=== PATIENT | male | born 1955 | race Asian ===

== ENCOUNTER 2021-10-02 05:36 | Inpatient (IN) | payer MEDICARE, OTHER ==
[~2021-10-02] VITALS: Ht 172.7 cm; Wt 89.5 kg
[2021-10-02 05:54] LABS: BASOPHILS % (AUTO) 0.9 % (0.0-2.0); EOSINOPHILS % (AUTO) 1.9 % (1.0-6.0); HEMATOCRIT 37.1 % (41-53); HEMOGLOBIN 11.6 g/dL (13.5-17.5); LYMPHOCYTES # (AUTO) 1.2 K/uL (1.0-4.8); LYMPHOCYTES % (AUTO) 14.1 % (22.0-44.0); MEAN CORPUSCULAR HEMOGLOBIN 20.2 pg (26.0-34.0); MEAN CORPUSCULAR HGB CONC 31.4 G/dL (31.0-37.0); MEAN CORPUSCULAR VOLUME 65 fL (80-100); MONOCYTES # (AUTO) 0.5 K/uL (0.1-1.0); MONOCYTES % (AUTO) 5.3 % (2.0-9.0); NEUTROPHILS # (AUTO) 6.6 K/uL (1.8-7.7); NEUTROPHILS % (AUTO) 77.8 % (40.0-70.0); PLATELET COUNT (AUTO) 309 K/uL (150-450); RED BLOOD CELL COUNT(AUTO) 5.75 MIL/uL (4.50-5.90); RED CELL DISTRIBUTION WIDTH 15.2 % (11.5-14.5)
[2021-10-02 06:04] LABS: COVID AG,FIA SOURCE NASOPHARYNGEAL
[2021-10-02 06:20] LABS: GLUCOSE,POINT OF CARE 214 MG/DL (70-110)
[2021-10-02 06:20] LABS: ALBUMIN 2.3 g/dL (3.4-5.0); BILIRUBIN,TOTAL 0.3 mg/dL (0.1-1.0); POTASSIUM 3.9 mmol/L (3.5-5.1)
[2021-10-02 06:21] LABS: CREATININE 7.6 mg/dL (0.60-1.30)
[2021-10-02] MEDS ORDERED: CALCIUM GLUCONATE 0.465 MEQ/ML 10 ML VIAL IVP ONE (07:00)
[2021-10-02] MEDS ORDERED: LORazepam 2 MG/ML VIAL IVP ONE (07:15)
[2021-10-02 07:27] LABS: APPEARANCE,URINE CLEAR (CLEAR); BILIRUBIN,URINE NEGATIVE (NEGATIVE); GLUCOSE, URINE (UA) 300-500 mg/dL (NEGATIVE); KETONES,URINE NEGATIVE (NEGATIVE); LEUKOCYTE ESTERASE ,URINE NEGATIVE (NEGATIVE); NITRATE,URINE NEGATIVE (NEGATIVE); OCCULT BLOOD,URINE SMALL (NEGATIVE); PH,URINE 6.5 (5.0-8.0); PROTEIN,URINE 300-600,SEE CONFIRM mg/dL (NEGATIVE); SPECIFIC GRAVITIY, URINE 1.009 (1.003-1.030); UROBILINOGEN,URINE <=1.0 mg/dL (<=1.0)
[2021-10-02 07:30] LABS: BACTERIA,URINE None Seen /HPF (None Seen); SULFOSALICYLIC ACID,URINE 4+ (Negative); WBC,URINE None Seen /HPF (0-5)
[2021-10-02] MEDS ORDERED: BUMETANIDE 0.25 MG/ML 4 ML VIAL IVP ONE (08:45)
[2021-10-02] MEDS ORDERED: CARVEDILOL 3.125 MG TABLET PO SCH (10:00)
[2021-10-02 11:02] LABS: CALCIUM, TOTAL 6.1 mg/dL (8.8-10.5); CREATININE 7.45 mg/dL (0.60-1.30); POTASSIUM 3.9 mmol/L (3.5-5.1)
[2021-10-02] MEDS ORDERED: NITROGLYCERIN 2% (1 GM=INCH) PACKET TP ONE ×2 (11:15)
[2021-10-02 12:23] VITALS: BP 152/104
[2021-10-02] MEDS ORDERED: DEXTROSE 50%-WATER 25 GM/50 ML SYRINGE IVP PRN (12:30)
[2021-10-02] MEDS ORDERED: ZOLPIDEM TARTRATE 5 MG TABLET PO PRN (13:45)
[2021-10-02] MEDS ORDERED: MORPHINE SULFATE 2 MG/ML SYRINGE IVP PRN (13:45)
[2021-10-02] MEDS ORDERED: BISACODYL 10 MG RECTAL RECTAL SUPPOSITORY PR PRN (13:45)
[2021-10-02] MEDS ORDERED: MAGNESIUM HYDROXIDE SUSPENSION 30 ML UDCUP PO PRN (13:45)
[2021-10-02] MEDS ORDERED: HYDROCODONE/ACETAMINOPHEN 5-325 MG TABLET PO PRN (13:45)
[2021-10-02] MEDS ORDERED: ONDANSETRON HCL 4 MG/2 ML VIAL IVP PRN (13:45)
[2021-10-02 15:44] VITALS: BP 154/91
[2021-10-02] MEDS ORDERED: BUMETANIDE 0.25 MG/ML 4 ML VIAL IVP SCH (16:00)
[2021-10-02] MEDS ORDERED: HEPARIN SODIUM,PORCINE 5,000 UNITS/ML VIAL SQ SCH (16:00)
[2021-10-02] MEDS: CALCIUM CIT/VITAMIN D3 200 MG-250 UNITS[6.25MCG] TABLET PO SCH (16:01)
[2021-10-02] MEDS: AmLODIPine BESYLATE 10 MG TABLET PO SCH ×2 (16:01→20:54)
[2021-10-02] MEDS: ASPIRIN 81 MG DR TABLET PO SCH (16:01)
[2021-10-02] MEDS: BUMETANIDE 0.25 MG/ML 4 ML VIAL IVP SCH ×2 (16:10→20:53)
[2021-10-02 17:26] LABS: GLUCOMETER DEV NAME(LOC) 5S.2B; GLUCOSE,POINT OF CARE 185 MG/DL (70-110)
[2021-10-02] MEDS ORDERED: HEPARIN SODIUM,PORCINE 5,000 UNITS/ML VIAL IVP PRN (18:45)
[2021-10-02] MEDS: NITROGLYCERIN 2% (1 GM=INCH) PACKET TP SCH (18:45)
[2021-10-02 19:16] LABS: BASOPHILS % (AUTO) 0.5 % (0.0-2.0); EOSINOPHILS % (AUTO) 2.3 % (1.0-6.0); HEMATOCRIT 34.5 % (41-53); LYMPHOCYTES % (AUTO) 14.3 % (22.0-44.0); MEAN CORPUSCULAR HEMOGLOBIN 20.4 pg (26.0-34.0); MEAN CORPUSCULAR HGB CONC 31.8 G/dL (31.0-37.0); MEAN CORPUSCULAR VOLUME 64 fL (80-100); MONOCYTES # (AUTO) 0.5 K/uL (0.1-1.0); MONOCYTES % (AUTO) 6.5 % (2.0-9.0); NEUTROPHILS # (AUTO) 5.5 K/uL (1.8-7.7); NEUTROPHILS % (AUTO) 76.4 % (40.0-70.0); PLATELET COUNT (AUTO) 301 K/uL (150-450); RED BLOOD CELL COUNT(AUTO) 5.39 MIL/uL (4.50-5.90); RED CELL DISTRIBUTION WIDTH 15.1 % (11.5-14.5)
[2021-10-02 19:31] LABS: PROTHROMBIN TIME 10.3 SEC (9.4-11.6)
[2021-10-02 20:05] VITALS: BP 135/81
[2021-10-02 20:25] LABS: GLUCOMETER DEV NAME(LOC) 5S.1B; GLUCOSE,POINT OF CARE 139 MG/DL (70-110)
[2021-10-02] MEDS: CARVEDILOL 12.5 MG TABLET PO SCH (20:53)
[2021-10-02] MEDS: DOCUSATE SODIUM 100 MG CAPSULE PO SCH ×2 (20:53→21:00)
[2021-10-02] MEDS: INSULIN LISPRO 100 UNITS/ML SQ PRN (21:04)
[2021-10-02] MEDS: HEPARIN SODIUM 25000 UNITS/D5W 250 ML IV PRN (21:29)
[2021-10-03] VITALS (7 sets, daily range): BP systolic 118–139; BP diastolic 70–78
[2021-10-03] MEDS: NITROGLYCERIN 2% (1 GM=INCH) PACKET TP SCH ×5 (00:14→23:28)
[2021-10-03 02:16] LABS: CREATININE,URINE RANDOM 23.5 mg/dL (30.0-125.0)
[2021-10-03 03:31] LABS: GLUCOMETER DEV NAME(LOC) 5N.1C; GLUCOSE,POINT OF CARE 200 MG/DL (70-110)
[2021-10-03 04:24] LABS: BASOPHILS % (AUTO) 0.7 % (0.0-2.0); EOSINOPHILS % (AUTO) 2.3 % (1.0-6.0); HEMATOCRIT 32.6 % (41-53); HEMOGLOBIN 10.3 g/dL (13.5-17.5); LYMPHOCYTES # (AUTO) 0.9 K/uL (1.0-4.8); LYMPHOCYTES % (AUTO) 11.5 % (22.0-44.0); MEAN CORPUSCULAR HEMOGLOBIN 20.2 pg (26.0-34.0); MEAN CORPUSCULAR HGB CONC 31.6 G/dL (31.0-37.0); MEAN CORPUSCULAR VOLUME 64 fL (80-100); MONOCYTES # (AUTO) 0.5 K/uL (0.1-1.0); MONOCYTES % (AUTO) 6.1 % (2.0-9.0); NEUTROPHILS # (AUTO) 6.5 K/uL (1.8-7.7); NEUTROPHILS % (AUTO) 79.4 % (40.0-70.0); PLATELET COUNT (AUTO) 262 K/uL (150-450); RED CELL DISTRIBUTION WIDTH 15.1 % (11.5-14.5)
[2021-10-03 04:49] LABS: CALCIUM, TOTAL 6.1 mg/dL (8.8-10.5); CHOL/HDL RATIO 5.7 (4.2-7.3); CREATININE 7.56 mg/dL (0.60-1.30); MAGNESIUM 2.3 mg/dL (1.80-2.40); PHOSPHORUS 8.9 mg/dL (2.5-4.9); POTASSIUM 4.2 mmol/L (3.5-5.1)
[2021-10-03 05:02] LABS: HEMOGLOBIN A1C 8.3 % (3.8-5.6)
[2021-10-03] MEDS: HEPARIN SODIUM,PORCINE 5,000 UNITS/ML VIAL IVP PRN (05:04)
[2021-10-03] MEDS: INSULIN LISPRO 100 UNITS/ML SQ PRN ×3 (06:11→20:50)
[2021-10-03 06:51] LABS: GLUCOMETER DEV NAME(LOC) 5N.1C; GLUCOSE,POINT OF CARE 165 MG/DL (70-110)
[2021-10-03] MEDS: CARVEDILOL 12.5 MG TABLET PO SCH ×2 (08:33→20:48)
[2021-10-03] MEDS: AmLODIPine BESYLATE 10 MG TABLET PO SCH ×2 (08:34→20:48)
[2021-10-03] MEDS: DOCUSATE SODIUM 100 MG CAPSULE PO SCH ×2 (08:34→20:48)
[2021-10-03] MEDS: ASPIRIN 81 MG DR TABLET PO SCH (08:34)
[2021-10-03] MEDS: PANTOPRAZOLE SODIUM 40 MG DR TABLET PO SCH (08:34)
[2021-10-03] MEDS: ALLOPURINOL 300 MG TABLET PO SCH (08:37)
[2021-10-03] MEDS: CALCIUM CIT/VITAMIN D3 200 MG-250 UNITS[6.25MCG] TABLET PO SCH (08:39)
[2021-10-03] MEDS: BUMETANIDE 0.25 MG/ML 4 ML VIAL IVP SCH ×3 (08:40→20:49)
[2021-10-03] MEDS: ATORVASTATIN CALCIUM 40 MG TABLET PO SCH (11:41)
[2021-10-03 11:56] LABS: GLUCOMETER DEV NAME(LOC) 5S.2B; GLUCOSE,POINT OF CARE 159 MG/DL (70-110)
[2021-10-03] MEDS: HEPARIN SODIUM 25000 UNITS/D5W 250 ML IV PRN (18:48)
[2021-10-04 00:21] LABS: GLUCOMETER DEV NAME(LOC) 5S.2B; GLUCOSE,POINT OF CARE 140 MG/DL (70-110)
[2021-10-04 00:21] LABS: GLUCOMETER DEV NAME(LOC) 5N.1C; GLUCOSE,POINT OF CARE 184 MG/DL (70-110)
[2021-10-04 04:25] VITALS: BP 120/54
[2021-10-04] MEDS: INSULIN LISPRO 100 UNITS/ML SQ PRN ×3 (05:57→20:44)
[2021-10-04] MEDS: NITROGLYCERIN 2% (1 GM=INCH) PACKET TP SCH ×4 (05:57→23:18)
[2021-10-04 06:52] LABS: CALCIUM, TOTAL 6.2 mg/dL (8.8-10.5); CREATININE 8.04 mg/dL (0.60-1.30); MAGNESIUM 2.3 mg/dL (1.80-2.40); POTASSIUM 4.8 mmol/L (3.5-5.1)
[2021-10-04 06:55] LABS: GLUCOMETER DEV NAME(LOC) 5S.2B; GLUCOSE,POINT OF CARE 150 MG/DL (70-110)
[2021-10-04 07:07] LABS: IGM (IMMUNOFIXATION) 51 mg/dL (20-172)
[2021-10-04 07:34] LABS: PHOSPHORUS 10.5 mg/dL (2.5-4.9)
[2021-10-04 07:40] VITALS: BP 110/61
[2021-10-04 09:30] VITALS: BP 119/74
[2021-10-04] MEDS: BUMETANIDE 0.25 MG/ML 4 ML VIAL IVP SCH ×3 (10:09→20:43)
[2021-10-04] MEDS: CARVEDILOL 12.5 MG TABLET PO SCH ×2 (10:11→20:53)
[2021-10-04] MEDS: PANTOPRAZOLE SODIUM 40 MG DR TABLET PO SCH (10:11)
[2021-10-04] MEDS: AmLODIPine BESYLATE 10 MG TABLET PO SCH (10:11)
[2021-10-04] MEDS: ASPIRIN 81 MG DR TABLET PO SCH (10:12)
[2021-10-04] MEDS: DOCUSATE SODIUM 100 MG CAPSULE PO SCH ×2 (10:12→20:53)
[2021-10-04] MEDS: ALLOPURINOL 300 MG TABLET PO SCH (10:12)
[2021-10-04] MEDS: ATORVASTATIN CALCIUM 40 MG TABLET PO SCH (10:12)
[2021-10-04] MEDS: CALCIUM CIT/VITAMIN D3 200 MG-250 UNITS[6.25MCG] TABLET PO SCH (10:12)
[2021-10-04 10:15] VITALS: BP 119/74
[2021-10-04] MEDS: HEPARIN SODIUM 25000 UNITS/D5W 250 ML IV PRN (10:35)
[2021-10-04 12:06] LABS: GLUCOMETER DEV NAME(LOC) 5S.2B; GLUCOSE,POINT OF CARE 155 MG/DL (70-110)
[2021-10-04 15:15] VITALS: BP 102/66
[2021-10-04 16:06] LABS: ALBUMIN URINE (ELP) 44.8 %
[2021-10-04 18:31] LABS: GLUCOMETER DEV NAME(LOC) 5N.1C; GLUCOSE,POINT OF CARE 129 MG/DL (70-110)
[2021-10-04 20:10] VITALS: BP 116/59
[2021-10-04 21:41] LABS: CREATININE,SERUM FOR CRCL 8.04 mg/dL (0.60-1.30); CREATININE,URINE 48.7 mg/dL (30.0-125.0)
[2021-10-04 22:46] LABS: GLUCOMETER DEV NAME(LOC) 5S.2B; GLUCOSE,POINT OF CARE 196 MG/DL (70-110)
[2021-10-05 00:18] VITALS: BP 107/67
[2021-10-05 04:24] VITALS: BP 107/55
[2021-10-05] MEDS: NITROGLYCERIN 2% (1 GM=INCH) PACKET TP SCH ×3 (05:47→17:37)
[2021-10-05 06:42] LABS: GLUCOMETER DEV NAME(LOC) 5N.1C; GLUCOSE,POINT OF CARE 103 MG/DL (70-110)
[2021-10-05 08:16] LABS: BASOPHILS % (AUTO) 0.7 % (0.0-2.0); EOSINOPHILS % (AUTO) 2.2 % (1.0-6.0); HEMATOCRIT 32.9 % (41-53); HEMOGLOBIN 10.4 g/dL (13.5-17.5); LYMPHOCYTES # (AUTO) 0.8 K/uL (1.0-4.8); LYMPHOCYTES % (AUTO) 11.5 % (22.0-44.0); MEAN CORPUSCULAR HEMOGLOBIN 20.2 pg (26.0-34.0); MEAN CORPUSCULAR HGB CONC 31.5 G/dL (31.0-37.0); MEAN CORPUSCULAR VOLUME 64 fL (80-100); MONOCYTES # (AUTO) 0.4 K/uL (0.1-1.0); MONOCYTES % (AUTO) 5.9 % (2.0-9.0); NEUTROPHILS # (AUTO) 5.2 K/uL (1.8-7.7); NEUTROPHILS % (AUTO) 79.7 % (40.0-70.0); PLATELET COUNT (AUTO) 243 K/uL (150-450); RED BLOOD CELL COUNT(AUTO) 5.13 MIL/uL (4.50-5.90); RED CELL DISTRIBUTION WIDTH 15.1 % (11.5-14.5)
[2021-10-05] MEDS: ASPIRIN 81 MG DR TABLET PO SCH (08:20)
[2021-10-05] MEDS: PANTOPRAZOLE SODIUM 40 MG DR TABLET PO SCH (08:20)
[2021-10-05] MEDS: ATORVASTATIN CALCIUM 40 MG TABLET PO SCH (08:20)
[2021-10-05] MEDS: AmLODIPine BESYLATE 10 MG TABLET PO SCH (08:20)
[2021-10-05] MEDS: DOCUSATE SODIUM 100 MG CAPSULE PO SCH ×2 (08:20→20:42)
[2021-10-05] MEDS: CARVEDILOL 12.5 MG TABLET PO SCH ×2 (08:21→20:42)
[2021-10-05] MEDS: CALCIUM CIT/VITAMIN D3 200 MG-250 UNITS[6.25MCG] TABLET PO SCH (08:24)
[2021-10-05] MEDS: BUMETANIDE 0.25 MG/ML 4 ML VIAL IVP SCH (08:24)
[2021-10-05] MEDS: ALLOPURINOL 300 MG TABLET PO SCH (08:24)
[2021-10-05 08:48] LABS: ALBUMIN 2.2 g/dL (3.4-5.0); BILIRUBIN,TOTAL 0.3 mg/dL (0.1-1.0); CALCIUM, TOTAL 6.1 mg/dL (8.8-10.5); CREATININE 8.65 mg/dL (0.60-1.30); POTASSIUM 4.9 mmol/L (3.5-5.1)
[2021-10-05 09:06] VITALS: BP 139/74
[2021-10-05 12:12] VITALS: BP 113/75
[2021-10-05] MEDS: INSULIN LISPRO 100 UNITS/ML SQ PRN ×2 (12:26→20:41)
[2021-10-05 16:40] VITALS: BP 123/68
[2021-10-05 19:28] VITALS: BP 137/80
[2021-10-05] MEDS: HEPARIN SODIUM,PORCINE 5,000 UNITS/ML VIAL IVP PRN (20:37)
[2021-10-05] MEDS: BUMETANIDE 1 MG TABLET PO SCH (20:42)
[2021-10-06] VITALS (7 sets, daily range): BP systolic 109–141; BP diastolic 61–77
[2021-10-06] MEDS: NITROGLYCERIN 2% (1 GM=INCH) PACKET TP SCH ×5 (00:36→23:43)
[2021-10-06 07:45] LABS: BASOPHILS % (AUTO) 0.6 % (0.0-2.0); EOSINOPHILS % (AUTO) 2.3 % (1.0-6.0); HEMATOCRIT 32.2 % (41-53); HEMOGLOBIN 10.2 g/dL (13.5-17.5); LYMPHOCYTES # (AUTO) 0.8 K/uL (1.0-4.8); LYMPHOCYTES % (AUTO) 12.2 % (22.0-44.0); MEAN CORPUSCULAR HEMOGLOBIN 20.3 pg (26.0-34.0); MEAN CORPUSCULAR HGB CONC 31.6 G/dL (31.0-37.0); MEAN CORPUSCULAR VOLUME 64 fL (80-100); MONOCYTES # (AUTO) 0.5 K/uL (0.1-1.0); MONOCYTES % (AUTO) 7.4 % (2.0-9.0); NEUTROPHILS # (AUTO) 5.1 K/uL (1.8-7.7); NEUTROPHILS % (AUTO) 77.5 % (40.0-70.0); PLATELET COUNT (AUTO) 247 K/uL (150-450); RED CELL DISTRIBUTION WIDTH 14.9 % (11.5-14.5)
[2021-10-06 08:07] LABS: ALBUMIN 2.4 g/dL (3.4-5.0); BILIRUBIN,TOTAL 0.3 mg/dL (0.1-1.0); CALCIUM, TOTAL 6.2 mg/dL (8.8-10.5); CREATININE 9.33 mg/dL (0.60-1.30); POTASSIUM 4.8 mmol/L (3.5-5.1); TOTAL PROTEIN, SERUM 6.4 g/dL (6.4-8.2)
[2021-10-06 08:26] LABS: GLUCOMETER DEV NAME(LOC) 5S.2B; GLUCOSE,POINT OF CARE 226 MG/DL (70-110)
[2021-10-06 08:26] LABS: GLUCOMETER DEV NAME(LOC) 5S.2B; GLUCOSE,POINT OF CARE 165 MG/DL (70-110)
[2021-10-06 08:26] LABS: GLUCOMETER DEV NAME(LOC) 5S.2B; GLUCOSE,POINT OF CARE 122 MG/DL (70-110)
[2021-10-06 08:26] LABS: GLUCOMETER DEV NAME(LOC) 5N.1C; GLUCOSE,POINT OF CARE 112 MG/DL (70-110)
[2021-10-06] MEDS: BUMETANIDE 1 MG TABLET PO SCH ×2 (08:49→20:04)
[2021-10-06] MEDS: ASPIRIN 81 MG DR TABLET PO SCH (08:49)
[2021-10-06] MEDS: CALCIUM CIT/VITAMIN D3 200 MG-250 UNITS[6.25MCG] TABLET PO SCH (08:49)
[2021-10-06] MEDS: AmLODIPine BESYLATE 10 MG TABLET PO SCH (08:50)
[2021-10-06] MEDS: ALLOPURINOL 300 MG TABLET PO SCH (08:50)
[2021-10-06] MEDS: DOCUSATE SODIUM 100 MG CAPSULE PO SCH ×2 (08:50→20:04)
[2021-10-06] MEDS: PANTOPRAZOLE SODIUM 40 MG DR TABLET PO SCH (08:50)
[2021-10-06] MEDS: ATORVASTATIN CALCIUM 40 MG TABLET PO SCH (08:50)
[2021-10-06] MEDS: CARVEDILOL 12.5 MG TABLET PO SCH ×2 (08:50→20:04)
[2021-10-06] MEDS: INSULIN LISPRO 100 UNITS/ML SQ PRN ×2 (11:55→20:07)
[2021-10-06 13:26] LABS: GLUCOMETER DEV NAME(LOC) 5N.1C; GLUCOSE,POINT OF CARE 156 MG/DL (70-110)
[2021-10-07] VITALS (12 sets, daily range): BP systolic 121–193; BP diastolic 65–104
[2021-10-07 01:46] LABS: GLUCOMETER DEV NAME(LOC) 5N.1C; GLUCOSE,POINT OF CARE 142 MG/DL (70-110)
[2021-10-07 01:46] LABS: GLUCOMETER DEV NAME(LOC) 5N.1C; GLUCOSE,POINT OF CARE 179 MG/DL (70-110)
[2021-10-07] MEDS: NITROGLYCERIN 2% (1 GM=INCH) PACKET TP SCH ×2 (05:32→12:00)
[2021-10-07] MEDS: HEPARIN SODIUM 25000 UNITS/D5W 250 ML IV PRN (05:34)
[2021-10-07 07:16] LABS: BASOPHILS % (AUTO) 0.5 % (0.0-2.0); EOSINOPHILS % (AUTO) 1.9 % (1.0-6.0); HEMATOCRIT 30.2 % (41-53); HEMOGLOBIN 9.5 g/dL (13.5-17.5); LYMPHOCYTES # (AUTO) 0.6 K/uL (1.0-4.8); LYMPHOCYTES % (AUTO) 9.6 % (22.0-44.0); MEAN CORPUSCULAR HEMOGLOBIN 20.1 pg (26.0-34.0); MEAN CORPUSCULAR HGB CONC 31.5 G/dL (31.0-37.0); MEAN CORPUSCULAR VOLUME 64 fL (80-100); MONOCYTES # (AUTO) 0.6 K/uL (0.1-1.0); MONOCYTES % (AUTO) 8.4 % (2.0-9.0); NEUTROPHILS # (AUTO) 5.3 K/uL (1.8-7.7); NEUTROPHILS % (AUTO) 79.6 % (40.0-70.0); PLATELET COUNT (AUTO) 222 K/uL (150-450); RED BLOOD CELL COUNT(AUTO) 4.72 MIL/uL (4.50-5.90); RED CELL DISTRIBUTION WIDTH 14.6 % (11.5-14.5)
[2021-10-07 07:24] LABS: PROTHROMBIN TIME 10.5 SEC (9.4-11.6)
[2021-10-07 08:07] LABS: % IRON SATURATION 18.3 % (30-44)
[2021-10-07 08:20] LABS: ALBUMIN 2.2 g/dL (3.4-5.0); BILIRUBIN,TOTAL 0.3 mg/dL (0.1-1.0); CREATININE 9.49 mg/dL (0.60-1.30); POTASSIUM 4.9 mmol/L (3.5-5.1); TOTAL PROTEIN, SERUM 6.2 g/dL (6.4-8.2)
[2021-10-07] MEDS: ASPIRIN 81 MG DR TABLET PO SCH (09:00)
[2021-10-07] MEDS: DOCUSATE SODIUM 100 MG CAPSULE PO SCH ×2 (09:00→20:45)
[2021-10-07] MEDS: PANTOPRAZOLE SODIUM 40 MG DR TABLET PO SCH (09:00)
[2021-10-07] MEDS: CARVEDILOL 12.5 MG TABLET PO SCH ×2 (09:00→20:44)
[2021-10-07] MEDS: IRON SUCROSE COMPLEX 200 MG in SODIUM CHLORIDE 0.9% 100 ML IV SCH (09:00)
[2021-10-07] MEDS: AmLODIPine BESYLATE 10 MG TABLET PO SCH (09:00)
[2021-10-07] MEDS: CALCIUM CIT/VITAMIN D3 200 MG-250 UNITS[6.25MCG] TABLET PO SCH (09:00)
[2021-10-07] MEDS: ATORVASTATIN CALCIUM 40 MG TABLET PO SCH (09:00)
[2021-10-07] MEDS: BUMETANIDE 1 MG TABLET PO SCH ×2 (09:00→20:44)
[2021-10-07 10:41] LABS: GLUCOMETER DEV NAME(LOC) 5N.1C; GLUCOSE,POINT OF CARE 132 MG/DL (70-110)
[2021-10-07] MEDS ORDERED: IOHEXOL 300 MG/ML 50 ML VIAL ONE (11:54)
[2021-10-07] MEDS ORDERED: HEPARIN SODIUM 1000 UNITS/NS 1,000 ML ONE (11:55)
[2021-10-07] MEDS ORDERED: IOHEXOL 300 MG/ML 100 ML VIAL ONE (11:55)
[2021-10-07] MEDS ORDERED: IOHEXOL 300 MG/ML 150 ML VIAL ONE (11:55)
[2021-10-07] MEDS ORDERED: LIDOCAINE/PF 1% 30 ML VIAL ONE (11:55)
[2021-10-07] MEDS ORDERED: SODIUM BICARBONATE 50 MEQ/50 ML VIAL ONE (11:55)
[2021-10-07] MEDS ORDERED: FentaNYL CITRATE PF 100 MCG/2 ML VIAL ONE (12:30)
[2021-10-07] MEDS ORDERED: VERAPAMIL HCL 2.5 MG/ML 2 ML VIAL ONE (12:30)
[2021-10-07] MEDS ORDERED: MIDAZOLAM HCL 2 MG/2 ML VIAL ONE (12:30)
[2021-10-07] MEDS ORDERED: NITROGLYCERIN 50 MG/D5% WATER 250 ML ONE (12:30)
[2021-10-07] MEDS ORDERED: IOHEXOL 300 MG/ML 150 ML VIAL IARTER ONE (13:15)
[2021-10-07] MEDS ORDERED: FentaNYL CITRATE PF 100 MCG/2 ML VIAL IVP ONE (13:15)
[2021-10-07] MEDS ORDERED: NITROGLYCERIN/D5W 50 MG/250 ML IV BOTTLE IARTER ONE (13:15)
[2021-10-07] MEDS ORDERED: HEPARIN SODIUM 1000 UNITS/NS 1,000 ML IARTER ONE (13:15)
[2021-10-07] MEDS ORDERED: LIDOCAINE 1% 30 ML/SOD BICARB 8.4% 4 ML SQ ONE (13:15)
[2021-10-07] MEDS ORDERED: SODIUM CHLORIDE 0.9% 500 ML IV ONE (13:15)
[2021-10-07] MEDS ORDERED: HEPARIN SODIUM,PORCINE 1,000 UNITS/ML 10 ML VIAL IARTER ONE (13:15)
[2021-10-07] MEDS ORDERED: VERAPAMIL HCL 2.5 MG/ML 2 ML VIAL IARTER ONE (13:15)
[2021-10-07] MEDS ORDERED: ASPIRIN 325 MG TABLET ONE (13:44)
[2021-10-07] MEDS ORDERED: CLOPIDOGREL BISULFATE 300 MG TABLET ONE (13:44)
[2021-10-07] MEDS ORDERED: HEPARIN SODIUM,PORCINE 5,000 UNITS/ML VIAL IVP ONE (13:45)
[2021-10-07] MEDS ORDERED: ASPIRIN 325 MG TABLET PO ONE (14:00)
[2021-10-07] MEDS ORDERED: CLOPIDOGREL BISULFATE 300 MG TABLET PO ONE (14:00)
[2021-10-07] MEDS ORDERED: HEPARIN SODIUM,PORCINE 5,000 UNITS/ML VIAL ONE (16:52)
[2021-10-07 20:21] LABS: GLUCOMETER DEV NAME(LOC) 5N.1C; GLUCOSE,POINT OF CARE 127 MG/DL (70-110)
[2021-10-07] MEDS: HEPARIN SODIUM,PORCINE 5,000 UNITS/ML VIAL SQ SCH (20:45)
[2021-10-07] MEDS: INSULIN LISPRO 100 UNITS/ML SQ PRN (20:46)
[2021-10-08] VITALS (13 sets, daily range): BP systolic 121–160; BP diastolic 59–95
[2021-10-08 02:01] LABS: GLUCOMETER DEV NAME(LOC) 5S.2B; GLUCOSE,POINT OF CARE 114 MG/DL (70-110)
[2021-10-08 03:06] LABS: HEPATITIS C AB (EIA) <0.1 s/co ratio (0.0-0.9)
[2021-10-08 05:06] LABS: GLUCOMETER DEV NAME(LOC) 5N.1C; GLUCOSE,POINT OF CARE 190 MG/DL (70-110)
[2021-10-08 05:07] LABS: HIV 1-2 SCREEN 4TH GEN W/RFLX Non Reactive (Non Reactive)
[2021-10-08 06:53] LABS: ALBUMIN 2.3 g/dL (3.4-5.0); BILIRUBIN,TOTAL 0.3 mg/dL (0.1-1.0); CALCIUM, TOTAL 6.3 mg/dL (8.8-10.5); CREATININE 9.26 mg/dL (0.60-1.30); POTASSIUM 5.1 mmol/L (3.5-5.1); TOTAL PROTEIN, SERUM 6.5 g/dL (6.4-8.2)
[2021-10-08] MEDS: ATORVASTATIN CALCIUM 40 MG TABLET PO SCH (08:17)
[2021-10-08] MEDS: PANTOPRAZOLE SODIUM 40 MG DR TABLET PO SCH (08:17)
[2021-10-08] MEDS: AmLODIPine BESYLATE 10 MG TABLET PO SCH (08:17)
[2021-10-08] MEDS: CALCIUM CIT/VITAMIN D3 200 MG-250 UNITS[6.25MCG] TABLET PO SCH (08:17)
[2021-10-08] MEDS: ASPIRIN 81 MG DR TABLET PO SCH (08:17)
[2021-10-08] MEDS: DOCUSATE SODIUM 100 MG CAPSULE PO SCH ×2 (08:17→20:52)
[2021-10-08] MEDS: CLOPIDOGREL BISULFATE 75 MG TABLET PO SCH (08:18)
[2021-10-08] MEDS: BUMETANIDE 1 MG TABLET PO SCH (08:18)
[2021-10-08] MEDS: CARVEDILOL 12.5 MG TABLET PO SCH ×2 (08:18→20:52)
[2021-10-08] MEDS: HEPARIN SODIUM,PORCINE 5,000 UNITS/ML VIAL SQ SCH ×2 (08:18→20:52)
[2021-10-08] MEDS: IRON SUCROSE COMPLEX 200 MG in SODIUM CHLORIDE 0.9% 100 ML IV SCH (08:18)
[2021-10-08] MEDS ORDERED: SODIUM CHLORIDE 0.9% 1,000 ML ONE (09:38)
[2021-10-08] MEDS ORDERED: MIDAZOLAM HCL 2 MG/2 ML VIAL IVP ONE (12:00)
[2021-10-08] MEDS ORDERED: FentaNYL CITRATE PF 100 MCG/2 ML VIAL IVP ONE ×2 (12:00)
[2021-10-08] MEDS ORDERED: HEPARIN SODIUM,PORCINE 1,000 UNITS/ML VIAL IVP ONE (12:00)
[2021-10-08 12:51] LABS: GLUCOMETER DEV NAME(LOC) 5N.1C; GLUCOSE,POINT OF CARE 110 MG/DL (70-110)
[2021-10-08 12:51] LABS: GLUCOMETER DEV NAME(LOC) 5N.1C; GLUCOSE,POINT OF CARE 89 MG/DL (70-110)
[2021-10-08] MEDS ORDERED: HEPARIN SODIUM,PORCINE 1,000 UNITS/ML VIAL IVCATH ONE ×2 (13:30)
[2021-10-08 17:41] LABS: GLUCOMETER DEV NAME(LOC) 5N.1C; GLUCOSE,POINT OF CARE 130 MG/DL (70-110)
[2021-10-08 21:16] LABS: GLUCOMETER DEV NAME(LOC) 5S.2B; GLUCOSE,POINT OF CARE 133 MG/DL (70-110)
[2021-10-09] VITALS (13 sets, daily range): BP systolic 134–168; BP diastolic 73–101
[2021-10-09] MEDS: IRON SUCROSE COMPLEX 200 MG in SODIUM CHLORIDE 0.9% 100 ML IV SCH (08:56)
[2021-10-09] MEDS: ASPIRIN 81 MG DR TABLET PO SCH (08:56)
[2021-10-09] MEDS: AmLODIPine BESYLATE 10 MG TABLET PO SCH (08:56)
[2021-10-09] MEDS: CLOPIDOGREL BISULFATE 75 MG TABLET PO SCH (08:56)
[2021-10-09] MEDS: CARVEDILOL 12.5 MG TABLET PO SCH ×2 (08:56→20:49)
[2021-10-09] MEDS: ATORVASTATIN CALCIUM 40 MG TABLET PO SCH (08:57)
[2021-10-09] MEDS: DOCUSATE SODIUM 100 MG CAPSULE PO SCH ×2 (08:57→20:49)
[2021-10-09] MEDS: HEPARIN SODIUM,PORCINE 5,000 UNITS/ML VIAL SQ SCH ×2 (08:57→20:49)
[2021-10-09] MEDS: PANTOPRAZOLE SODIUM 40 MG DR TABLET PO SCH (08:57)
[2021-10-09] MEDS: CALCIUM CIT/VITAMIN D3 200 MG-250 UNITS[6.25MCG] TABLET PO SCH (09:08)
[2021-10-09 12:01] LABS: GLUCOMETER DEV NAME(LOC) 5S.2B; GLUCOSE,POINT OF CARE 125 MG/DL (70-110)
[2021-10-09] MEDS ORDERED: HEPARIN SODIUM,PORCINE 1,000 UNITS/ML VIAL IVCATH ONE ×2 (18:15)
[2021-10-09 20:06] LABS: GLUCOMETER DEV NAME(LOC) 5N.1C; GLUCOSE,POINT OF CARE 92 MG/DL (70-110)
[2021-10-09 20:06] LABS: GLUCOMETER DEV NAME(LOC) 5N.1C; GLUCOSE,POINT OF CARE 107 MG/DL (70-110)
[2021-10-09] MEDS: INSULIN LISPRO 100 UNITS/ML SQ PRN (20:54)
[2021-10-10] VITALS (14 sets, daily range): BP systolic 118–159; BP diastolic 60–97
[2021-10-10 01:01] LABS: GLUCOMETER DEV NAME(LOC) 5N.1C; GLUCOSE,POINT OF CARE 190 MG/DL (70-110)
[2021-10-10 06:47] LABS: GLUCOMETER DEV NAME(LOC) 5N.1C; GLUCOSE,POINT OF CARE 114 MG/DL (70-110)
[2021-10-10] MEDS: AmLODIPine BESYLATE 10 MG TABLET PO SCH (09:00)
[2021-10-10] MEDS: CARVEDILOL 12.5 MG TABLET PO SCH ×2 (09:00→21:00)
[2021-10-10] MEDS: ATORVASTATIN CALCIUM 40 MG TABLET PO SCH (09:03)
[2021-10-10] MEDS: ASPIRIN 81 MG DR TABLET PO SCH (09:03)
[2021-10-10] MEDS: CLOPIDOGREL BISULFATE 75 MG TABLET PO SCH (09:03)
[2021-10-10] MEDS: CALCIUM CIT/VITAMIN D3 200 MG-250 UNITS[6.25MCG] TABLET PO SCH (09:03)
[2021-10-10] MEDS: HEPARIN SODIUM,PORCINE 5,000 UNITS/ML VIAL SQ SCH ×2 (09:04→21:17)
[2021-10-10] MEDS: PANTOPRAZOLE SODIUM 40 MG DR TABLET PO SCH (09:04)
[2021-10-10] MEDS: DOCUSATE SODIUM 100 MG CAPSULE PO SCH ×2 (09:04→21:15)
[2021-10-10] MEDS: IRON SUCROSE COMPLEX 200 MG in SODIUM CHLORIDE 0.9% 100 ML IV SCH (12:57)
[2021-10-10] MEDS ORDERED: HEPARIN SODIUM,PORCINE 1,000 UNITS/ML VIAL IVP ONE (16:28)
[2021-10-10] MEDS: INSULIN LISPRO 100 UNITS/ML SQ PRN (17:19)
[2021-10-10 19:51] LABS: GLUCOMETER DEV NAME(LOC) 5N.1C; GLUCOSE,POINT OF CARE 142 MG/DL (70-110)
[2021-10-10 19:51] LABS: GLUCOMETER DEV NAME(LOC) 5N.1C; GLUCOSE,POINT OF CARE 113 MG/DL (70-110)
[2021-10-10] MEDS: SACUBITRIL/VALSARTAN 24-26 MG TABLET PO SCH (21:15)
[2021-10-10 23:01] LABS: GLUCOMETER DEV NAME(LOC) 5S.1B; GLUCOSE,POINT OF CARE 140 MG/DL (70-110)
[2021-10-11 04:32] VITALS: BP 142/67
[2021-10-11 06:01] LABS: GLUCOMETER DEV NAME(LOC) 5S.1B; GLUCOSE,POINT OF CARE 100 MG/DL (70-110)
[2021-10-11 06:50] LABS: CALCIUM, TOTAL 7.2 mg/dL (8.8-10.5); CREATININE 5.26 mg/dL (0.60-1.30); PHOSPHORUS 5.2 mg/dL (2.5-4.9); POTASSIUM 4.3 mmol/L (3.5-5.1)
[2021-10-11 07:02] VITALS: BP 156/82
[2021-10-11] MEDS: CALCIUM CIT/VITAMIN D3 200 MG-250 UNITS[6.25MCG] TABLET PO SCH (09:12)
[2021-10-11] MEDS: PANTOPRAZOLE SODIUM 40 MG DR TABLET PO SCH (09:12)
[2021-10-11] MEDS: IRON SUCROSE COMPLEX 200 MG in SODIUM CHLORIDE 0.9% 100 ML IV SCH (09:12)
[2021-10-11] MEDS: CARVEDILOL 12.5 MG TABLET PO SCH ×2 (09:12→21:35)
[2021-10-11] MEDS: AmLODIPine BESYLATE 10 MG TABLET PO SCH (09:12)
[2021-10-11] MEDS: ASPIRIN 81 MG DR TABLET PO SCH (09:12)
[2021-10-11] MEDS: ATORVASTATIN CALCIUM 40 MG TABLET PO SCH (09:12)
[2021-10-11] MEDS: SACUBITRIL/VALSARTAN 24-26 MG TABLET PO SCH ×2 (09:12→20:24)
[2021-10-11] MEDS: CLOPIDOGREL BISULFATE 75 MG TABLET PO SCH (09:13)
[2021-10-11] MEDS: DOCUSATE SODIUM 100 MG CAPSULE PO SCH ×2 (09:13→20:24)
[2021-10-11] MEDS: HEPARIN SODIUM,PORCINE 5,000 UNITS/ML VIAL SQ SCH ×2 (09:13→20:24)
[2021-10-11] MEDS: EPOETIN ALFA 10,000 UNITS/ML 2 ML VIAL SQ SCH (09:21)
[2021-10-11 11:28] VITALS: BP 145/68
[2021-10-11 15:08] VITALS: BP 133/71
[2021-10-11] MEDS: CALCITRIOL 0.25 MCG CAPSULE PO SCH (16:22)
[2021-10-11 19:34] VITALS: BP 147/78
[2021-10-11] MEDS: INSULIN LISPRO 100 UNITS/ML SQ PRN (20:24)
[2021-10-11 22:21] LABS: GLUCOMETER DEV NAME(LOC) 5S.1B; GLUCOSE,POINT OF CARE 101 MG/DL (70-110)
[2021-10-11 22:21] LABS: GLUCOMETER DEV NAME(LOC) 5S.1B; GLUCOSE,POINT OF CARE 107 MG/DL (70-110)
[2021-10-11 23:46] VITALS: BP 134/60
[2021-10-12] VITALS (15 sets, daily range): BP systolic 115–162; BP diastolic 61–99
[2021-10-12 06:56] LABS: GLUCOMETER DEV NAME(LOC) 5N.3; GLUCOSE,POINT OF CARE 184 MG/DL (70-110)
[2021-10-12 06:56] LABS: GLUCOMETER DEV NAME(LOC) 5S.1B; GLUCOSE,POINT OF CARE 86 MG/DL (70-110)
[2021-10-12] MEDS: CLOPIDOGREL BISULFATE 75 MG TABLET PO SCH (09:00)
[2021-10-12] MEDS: HEPARIN SODIUM,PORCINE 5,000 UNITS/ML VIAL SQ SCH ×2 (09:03→21:18)
[2021-10-12] MEDS: DOCUSATE SODIUM 100 MG CAPSULE PO SCH ×2 (09:03→21:17)
[2021-10-12] MEDS: CALCIUM CIT/VITAMIN D3 200 MG-250 UNITS[6.25MCG] TABLET PO SCH (09:04)
[2021-10-12] MEDS: CALCITRIOL 0.25 MCG CAPSULE PO SCH (09:04)
[2021-10-12] MEDS: ASPIRIN 81 MG DR TABLET PO SCH (09:05)
[2021-10-12] MEDS: PANTOPRAZOLE SODIUM 40 MG DR TABLET PO SCH (09:05)
[2021-10-12] MEDS: ATORVASTATIN CALCIUM 40 MG TABLET PO SCH (09:05)
[2021-10-12] MEDS: IRON SUCROSE COMPLEX 200 MG in SODIUM CHLORIDE 0.9% 100 ML IV SCH (09:06)
[2021-10-12] MEDS ORDERED: SODIUM CHLORIDE 0.9% 1,000 ML ONE (12:09)
[2021-10-12 12:11] LABS: GLUCOMETER DEV NAME(LOC) 5S.1B; GLUCOSE,POINT OF CARE 136 MG/DL (70-110)
[2021-10-12] MEDS: AmLODIPine BESYLATE 10 MG TABLET PO SCH (16:42)
[2021-10-12] MEDS: SACUBITRIL/VALSARTAN 24-26 MG TABLET PO SCH ×2 (16:43→22:45)
[2021-10-12] MEDS: CARVEDILOL 12.5 MG TABLET PO SCH ×2 (16:43→22:45)
[2021-10-12] MEDS ORDERED: HEPARIN SODIUM,PORCINE 1,000 UNITS/ML VIAL IVCATH ONE ×2 (16:45)
[2021-10-12 18:21] LABS: GLUCOMETER DEV NAME(LOC) 5S.1B; GLUCOSE,POINT OF CARE 110 MG/DL (70-110)
[2021-10-12] MEDS: INSULIN LISPRO 100 UNITS/ML SQ PRN (21:21)
[2021-10-13 04:36] VITALS: BP 150/88
[2021-10-13] MEDS ORDERED: SODIUM CHLORIDE 0.9% 500 ML IV ONE (05:33)
[2021-10-13 06:55] LABS: GLUCOMETER DEV NAME(LOC) 5S.1B; GLUCOSE,POINT OF CARE 209 MG/DL (70-110)
[2021-10-13 06:55] LABS: GLUCOMETER DEV NAME(LOC) 5S.1B; GLUCOSE,POINT OF CARE 104 MG/DL (70-110)
[2021-10-13 07:38] VITALS: BP 137/82
[2021-10-13] MEDS: CLOPIDOGREL BISULFATE 75 MG TABLET PO SCH ×2 (09:00→16:01)
[2021-10-13] MEDS: PANTOPRAZOLE SODIUM 40 MG DR TABLET PO SCH (09:53)
[2021-10-13] MEDS: ASPIRIN 81 MG DR TABLET PO SCH (09:53)
[2021-10-13] MEDS: DOCUSATE SODIUM 100 MG CAPSULE PO SCH ×2 (09:53→20:32)
[2021-10-13] MEDS: CALCIUM CIT/VITAMIN D3 200 MG-250 UNITS[6.25MCG] TABLET PO SCH (09:54)
[2021-10-13] MEDS: ATORVASTATIN CALCIUM 40 MG TABLET PO SCH (09:56)
[2021-10-13] MEDS: SACUBITRIL/VALSARTAN 24-26 MG TABLET PO SCH ×2 (09:59→20:32)
[2021-10-13] MEDS: AmLODIPine BESYLATE 10 MG TABLET PO SCH (09:59)
[2021-10-13] MEDS: CARVEDILOL 12.5 MG TABLET PO SCH ×2 (09:59→20:32)
[2021-10-13] MEDS: CALCITRIOL 0.25 MCG CAPSULE PO SCH (10:01)
[2021-10-13] MEDS: HEPARIN SODIUM,PORCINE 5,000 UNITS/ML VIAL SQ SCH ×2 (10:01→20:32)
[2021-10-13] MEDS: IRON SUCROSE COMPLEX 200 MG in SODIUM CHLORIDE 0.9% 100 ML IV SCH (10:05)
[2021-10-13 10:45] VITALS: BP 119/70
[2021-10-13 12:20] LABS: GLUCOMETER DEV NAME(LOC) 5N.3; GLUCOSE,POINT OF CARE 137 MG/DL (70-110)
[2021-10-13] MEDS ORDERED: HEPARIN SODIUM,PORCINE 1,000 UNITS/ML VIAL IVP ONE (12:52)
[2021-10-13 14:37] VITALS: BP 128/78
[2021-10-13] MEDS: INSULIN LISPRO 100 UNITS/ML SQ PRN (18:26)
[2021-10-13 20:03] VITALS: BP 134/72
[2021-10-13 22:06] LABS: GLUCOMETER DEV NAME(LOC) 5N.3; GLUCOSE,POINT OF CARE 144 MG/DL (70-110)
[2021-10-13 23:31] LABS: GLUCOMETER DEV NAME(LOC) 5S.1B; GLUCOSE,POINT OF CARE 153 MG/DL (70-110)
[2021-10-14] VITALS (7 sets, daily range): BP systolic 128–163; BP diastolic 70–87
[2021-10-14 06:36] LABS: GLUCOMETER DEV NAME(LOC) 5N.1C; GLUCOSE,POINT OF CARE 119 MG/DL (70-110)
[2021-10-14 07:24] LABS: BASOPHILS % (AUTO) 0.7 % (0.0-2.0); EOSINOPHILS % (AUTO) 1.6 % (1.0-6.0); HEMATOCRIT 34.2 % (41-53); HEMOGLOBIN 10.8 g/dL (13.5-17.5); LYMPHOCYTES # (AUTO) 0.8 K/uL (1.0-4.8); LYMPHOCYTES % (AUTO) 9.1 % (22.0-44.0); MEAN CORPUSCULAR HEMOGLOBIN 20.3 pg (26.0-34.0); MEAN CORPUSCULAR HGB CONC 31.6 G/dL (31.0-37.0); MEAN CORPUSCULAR VOLUME 64 fL (80-100); MONOCYTES # (AUTO) 0.6 K/uL (0.1-1.0); MONOCYTES % (AUTO) 6.5 % (2.0-9.0); NEUTROPHILS # (AUTO) 7.5 K/uL (1.8-7.7); NEUTROPHILS % (AUTO) 82.1 % (40.0-70.0); PLATELET COUNT (AUTO) 244 K/uL (150-450); RED BLOOD CELL COUNT(AUTO) 5.33 MIL/uL (4.50-5.90); RED CELL DISTRIBUTION WIDTH 14.9 % (11.5-14.5)
[2021-10-14 07:34] LABS: CALCIUM, TOTAL 7.7 mg/dL (8.8-10.5); CREATININE 6.52 mg/dL (0.60-1.30); POTASSIUM 4.8 mmol/L (3.5-5.1)
[2021-10-14 07:39] LABS: ALBUMIN 2.4 g/dL (3.4-5.0); BILIRUBIN,TOTAL 0.3 mg/dL (0.1-1.0); TOTAL PROTEIN, SERUM 6.7 g/dL (6.4-8.2)
[2021-10-14] MEDS ORDERED: HEPARIN SODIUM,PORCINE 5,000 UNITS/ML VIAL ONE (07:55)
[2021-10-14] MEDS ORDERED: VANCOMYCIN HCL 1 GM/VIAL ONE (07:55)
[2021-10-14] MEDS ORDERED: LIDOCAINE/PF 1% 30 ML VIAL ONE (07:56)
[2021-10-14] MEDS ORDERED: SODIUM CHLORIDE 0.9% 0 ML ONE (07:56)
[2021-10-14] MEDS ORDERED: SODIUM CHLORIDE 0.9% 0 ML IV ONE (07:56)
[2021-10-14] MEDS ORDERED: SODIUM CHLORIDE 0.9% 1,000 ML IV ONE (08:00)
[2021-10-14] MEDS: EPOETIN ALFA 10,000 UNITS/ML 2 ML VIAL SQ SCH (09:00)
[2021-10-14] MEDS ORDERED: FentaNYL CITRATE PF 100 MCG/2 ML VIAL IVP PRN (10:30)
[2021-10-14] MEDS: DOCUSATE SODIUM 100 MG CAPSULE PO SCH ×2 (13:01→19:55)
[2021-10-14] MEDS: SACUBITRIL/VALSARTAN 24-26 MG TABLET PO SCH ×2 (13:01→19:55)
[2021-10-14] MEDS: HEPARIN SODIUM,PORCINE 5,000 UNITS/ML VIAL SQ SCH ×2 (13:04→19:55)
[2021-10-14] MEDS: PANTOPRAZOLE SODIUM 40 MG DR TABLET PO SCH (13:04)
[2021-10-14] MEDS: CLOPIDOGREL BISULFATE 75 MG TABLET PO SCH (13:08)
[2021-10-14] MEDS: ATORVASTATIN CALCIUM 40 MG TABLET PO SCH (13:08)
[2021-10-14] MEDS: ASPIRIN 81 MG DR TABLET PO SCH (13:08)
[2021-10-14] MEDS: AmLODIPine BESYLATE 10 MG TABLET PO SCH (13:08)
[2021-10-14] MEDS: CARVEDILOL 12.5 MG TABLET PO SCH ×2 (13:08→19:55)
[2021-10-14] MEDS: CALCITRIOL 0.25 MCG CAPSULE PO SCH (13:08)
[2021-10-14] MEDS: VITAMIN B COMP/VIT C/FOLIC ACID CAPSULE PO SCH (13:08)
[2021-10-14] MEDS: IRON SUCROSE COMPLEX 200 MG in SODIUM CHLORIDE 0.9% 100 ML IV SCH (13:15)
[2021-10-14] MEDS: CALCIUM CIT/VITAMIN D3 200 MG-250 UNITS[6.25MCG] TABLET PO SCH (13:23)
[2021-10-14 17:31] LABS: GLUCOMETER DEV NAME(LOC) 5N.1C; GLUCOSE,POINT OF CARE 111 MG/DL (70-110)
[2021-10-14 17:46] LABS: GLUCOMETER DEV NAME(LOC) 5N.1C; GLUCOSE,POINT OF CARE 136 MG/DL (70-110)
[2021-10-14] MEDS ORDERED: CLOP75TA60 PO (19:00)
[2021-10-14] MEDS ORDERED: ASPI-1450 PO (19:00)
[2021-10-14] MEDS ORDERED: AMLO-258 PO (19:01)
[2021-10-14] MEDS ORDERED: CALC0.2521 PO (19:02)
[2021-10-14] MEDS: OXYGEN THERAPY IH SCH (20:00)
[2021-10-14] MEDS: INSULIN LISPRO 100 UNITS/ML SQ PRN (20:06)
[2021-10-14] MEDS: ACETAMINOPHEN 325 MG TABLET PO PRN (22:50)
[2021-10-15] VITALS (13 sets, daily range): BP systolic 122–175; BP diastolic 75–108
[2021-10-15 00:31] LABS: GLUCOMETER DEV NAME(LOC) 5N.3; GLUCOSE,POINT OF CARE 225 MG/DL (70-110)
[2021-10-15] MEDS ORDERED: PROPOFOL 1% 20 ML VIAL IVP ONE (01:15)
[2021-10-15] MEDS ORDERED: LIDOCAINE/PF 2% 5 ML SYRINGE IVP ONE (01:15)
[2021-10-15] MEDS ORDERED: FentaNYL CITRATE PF 100 MCG/2 ML VIAL IVP ONE (01:15)
[2021-10-15] MEDS ORDERED: MIDAZOLAM HCL 2 MG/2 ML VIAL IVP ONE (01:15)
[2021-10-15] MEDS: ACETAMINOPHEN 325 MG TABLET PO PRN (04:30)
[2021-10-15] MEDS: OXYGEN THERAPY IH SCH (08:00)
[2021-10-15] MEDS: CALCITRIOL 0.25 MCG CAPSULE PO SCH (08:04)
[2021-10-15] MEDS: HEPARIN SODIUM,PORCINE 5,000 UNITS/ML VIAL SQ SCH (08:04)
[2021-10-15] MEDS: DOCUSATE SODIUM 100 MG CAPSULE PO SCH (08:05)
[2021-10-15] MEDS: ASPIRIN 81 MG DR TABLET PO SCH (08:06)
[2021-10-15] MEDS: CARVEDILOL 12.5 MG TABLET PO SCH (08:06)
[2021-10-15] MEDS: CALCIUM CIT/VITAMIN D3 200 MG-250 UNITS[6.25MCG] TABLET PO SCH (08:06)
[2021-10-15] MEDS: AmLODIPine BESYLATE 10 MG TABLET PO SCH (08:06)
[2021-10-15] MEDS: ATORVASTATIN CALCIUM 40 MG TABLET PO SCH (08:06)
[2021-10-15] MEDS: VITAMIN B COMP/VIT C/FOLIC ACID CAPSULE PO SCH (08:06)
[2021-10-15] MEDS: PANTOPRAZOLE SODIUM 40 MG DR TABLET PO SCH (08:06)
[2021-10-15] MEDS: SACUBITRIL/VALSARTAN 24-26 MG TABLET PO SCH (08:06)
[2021-10-15] MEDS: CLOPIDOGREL BISULFATE 75 MG TABLET PO SCH (08:15)
[2021-10-15] MEDS: IRON SUCROSE COMPLEX 200 MG in SODIUM CHLORIDE 0.9% 100 ML IV SCH (08:26)
[2021-10-15] MEDS ORDERED: ATOR40TA28 PO (17:49)
[2021-10-15] MEDS ORDERED: ASPI-1444 PO (17:49)
[2021-10-15] MEDS ORDERED: CALC0.2521 PO (17:50)
[2021-10-15] MEDS ORDERED: AMLO-258 PO (17:50)
[2021-10-15] MEDS ORDERED: CALC-840 PO (17:51)
[2021-10-15] MEDS ORDERED: CARV12 PO (17:52)
[2021-10-15] MEDS ORDERED: CLOP75TA60 PO (17:52)
[2021-10-15] MEDS ORDERED: HEPARIN SODIUM,PORCINE 1,000 UNITS/ML VIAL IVP ONE (19:09)
[2021-10-15] MEDS ORDERED: HEPARIN SODIUM,PORCINE 1,000 UNITS/ML VIAL IVCATH ONE ×2 (19:15)
[2021-10-15 20:21] LABS: GLUCOMETER DEV NAME(LOC) 5N.3; GLUCOSE,POINT OF CARE 129 MG/DL (70-110)
[2021-10-15 20:51] LABS: GLUCOMETER DEV NAME(LOC) 5N.1C; GLUCOSE,POINT OF CARE 132 MG/DL (70-110)
== END 2021-10-15 19:10 | disposition home or self-care (01) | DRG 246 ==
LOC: EMS 05:38 → 5S 11:29
PROVIDERS: ADMIT Internal Medicine; ATTEND Internal Medicine
PROC: 5A09357 Assistance with Respiratory Ventilation, Less than 24 Consecutive Hours, Continuous Positive Airway Pressure (ICD-10-PCS; 2021-10-02)
PROC: 027034Z Dilation of Coronary Artery, One Artery with Drug-eluting Intraluminal Device, Percutaneous Approach (ICD-10-PCS; principal; 2021-10-07)
PROC: 4A023N7 Measurement of Cardiac Sampling and Pressure, Left Heart, Percutaneous Approach (ICD-10-PCS; 2021-10-07)
PROC: B2111ZZ Fluoroscopy of Multiple Coronary Arteries using Low Osmolar Contrast (ICD-10-PCS; 2021-10-07)
PROC: 5A1D70Z Performance of Urinary Filtration, Intermittent, Less than 6 Hours Per Day (ICD-10-PCS; 2021-10-08)
PROC: 5A1D70Z Performance of Urinary Filtration, Intermittent, Less than 6 Hours Per Day (ICD-10-PCS; 2021-10-09)
PROC: 5A1D70Z Performance of Urinary Filtration, Intermittent, Less than 6 Hours Per Day (ICD-10-PCS; 2021-10-10)
PROC: 5A1D70Z Performance of Urinary Filtration, Intermittent, Less than 6 Hours Per Day (ICD-10-PCS; 2021-10-12)
PROC: 031C0ZF Bypass Left Radial Artery to Lower Arm Vein, Open Approach (ICD-10-PCS; 2021-10-14)
PROC: 3E0T3BZ Introduction of Anesthetic Agent into Peripheral Nerves and Plexi, Percutaneous Approach (ICD-10-PCS; 2021-10-14)
PROC: 3E0T33Z Introduction of Anti-inflammatory into Peripheral Nerves and Plexi, Percutaneous Approach (ICD-10-PCS; 2021-10-14)
DX: I21.4 Non-ST elevation (NSTEMI) myocardial infarction (principal); J96.01 Acute respiratory failure with hypoxia; N18.6 End stage renal disease; I50.43 Acute on chronic combined systolic (congestive) and diastolic (congestive) heart failure; I13.2 Hypertensive heart and chronic kidney disease with heart failure and with stage 5 chronic kidney disease, or end stage renal disease; I16.1 Hypertensive emergency; N17.9 Acute kidney failure, unspecified; G93.49 Other encephalopathy; E87.2 Acidosis; I42.8 Other cardiomyopathies; Z20.822 Contact with and (suspected) exposure to COVID-19; R41.3 Other amnesia; D63.1 Anemia in chronic kidney disease; E11.22 Type 2 diabetes mellitus with diabetic chronic kidney disease; E11.319 Type 2 diabetes mellitus with unspecified diabetic retinopathy without macular edema; E83.51 Hypocalcemia; I25.10 Atherosclerotic heart disease of native coronary artery without angina pectoris; I25.5 Ischemic cardiomyopathy; G62.9 Polyneuropathy, unspecified; E78.5 Hyperlipidemia, unspecified; Z91.14 Patient's other noncompliance with medication regimen; Z87.891 Personal history of nicotine dependence; Z91.19 Patient's noncompliance with other medical treatment and regimen; Z79.02 Long term (current) use of antithrombotics/antiplatelets; Z79.82 Long term (current) use of aspirin; Z79.899 Other long term (current) drug therapy; Z99.2 Dependence on renal dialysis; I44.30 Unspecified atrioventricular block
CPT/HCPCS: 36561; 71045; 76770; 76937; 80048; 80053; 80061; 80074; 81001; 81002; 81050; 82140; 82570; 82575; 82728; 82784; 82962; 83036; 83540; 83550; 83735; 83880; 83970; 84100; 84156; 84166; 84300; 84484; 85025; 85610; 85730; 86160; 86334; 87389; 90935; 92920; 92928; 93005; 93306; 93970; 94660; 99291; J0610; J0690; J0885; J1644; J1756; J2060; J2250; J2270; J2704; J3010; J3370; J3490; J7030; J7040; J7050; Q9967; 36415-L1; 36415-TC; Z7610

== ENCOUNTER 2021-10-17 07:40 | Emergency (ER) | payer MEDICARE, OTHER ==
[~2021-10-17] VITALS: Ht 170.2 cm; Wt 81.0 kg
[~2021-10-17 07:40] MED LIST: AMLO-258 PO; ASPI-1444 PO; ATOR40TA28 PO; CALC-840 PO; CALC0.2521 PO; CARV12 PO; CLOP75TA60 PO
[2021-10-17 08:40] VITALS: BP 140/84
== END 2021-10-17 08:57 | disposition home or self-care (01) ==
LOC: EMS 07:42
DX: I13.2 Hypertensive heart and chronic kidney disease with heart failure and with stage 5 chronic kidney disease, or end stage renal disease (principal); E11.9 Type 2 diabetes mellitus without complications; I50.9 Heart failure, unspecified; N18.6 End stage renal disease; Z48.00 Encounter for change or removal of nonsurgical wound dressing
CPT/HCPCS: 99281; Z7502

== ENCOUNTER 2021-11-27 01:22 | Inpatient (IN) | payer MEDICARE, OTHER ==
[2021-11-27] VITALS (16 sets, daily range): BP systolic 134–195; BP diastolic 11–114
[~2021-11-27] VITALS: Ht 172.7 cm; Wt 86.8 kg
[2021-11-27] MEDS ORDERED: CALCIUM GLUCONATE 100 MG/ML 10 ML IVP ONE (01:45)
[2021-11-27] MEDS ORDERED: FUROSEMIDE 40 MG/4 ML VIAL IVP ONE (01:45)
[2021-11-27] MEDS: OXYGEN THERAPY IH SCH ×3 (01:52→20:00)
[2021-11-27 01:54] LABS: BASOPHILS % (AUTO) 0.7 % (0.0-2.0); EOSINOPHILS % (AUTO) 3.8 % (1.0-6.0); HEMATOCRIT 34.5 % (41-53); HEMOGLOBIN 10.8 g/dL (13.5-17.5); LYMPHOCYTES # (AUTO) 1.8 K/uL (1.0-4.8); LYMPHOCYTES % (AUTO) 17.5 % (22.0-44.0); MEAN CORPUSCULAR HEMOGLOBIN 20.7 pg (26.0-34.0); MEAN CORPUSCULAR HGB CONC 31.3 G/dL (31.0-37.0); MEAN CORPUSCULAR VOLUME 66 fL (80-100); MONOCYTES # (AUTO) 0.6 K/uL (0.1-1.0); MONOCYTES % (AUTO) 6.3 % (2.0-9.0); NEUTROPHILS # (AUTO) 7.3 K/uL (1.8-7.7); NEUTROPHILS % (AUTO) 71.7 % (40.0-70.0); PLATELET COUNT (AUTO) 203 K/uL (150-450); RED BLOOD CELL COUNT(AUTO) 5.21 MIL/uL (4.50-5.90); RED CELL DISTRIBUTION WIDTH 16.3 % (11.5-14.5)
[2021-11-27 02:02] LABS: CREATININE 7.64 mg/dL (0.60-1.30); POTASSIUM 4.7 mmol/L (3.5-5.1)
[2021-11-27 02:05] LABS: COVID AG,FIA SOURCE NASOPHARYNGEAL
[2021-11-27 02:09] LABS: APPEARANCE,URINE CLEAR (CLEAR); BILIRUBIN,URINE NEGATIVE (NEGATIVE); GLUCOSE, URINE (UA) 150-200 mg/dL (NEGATIVE); KETONES,URINE NEGATIVE (NEGATIVE); LEUKOCYTE ESTERASE ,URINE NEGATIVE (NEGATIVE); NITRATE,URINE NEGATIVE (NEGATIVE); OCCULT BLOOD,URINE TRACE (NEGATIVE); PROTEIN,URINE 300-600,SEE CONFIRM mg/dL (NEGATIVE); SPECIFIC GRAVITIY, URINE 1.009 (1.003-1.030); UROBILINOGEN,URINE <=1.0 mg/dL (<=1.0)
[2021-11-27 02:10] LABS: LACTIC ACID 1.1 mmol/L (0.4-2.0)
[2021-11-27 02:17] LABS: ALBUMIN 2.9 g/dL (3.4-5.0); BILIRUBIN,TOTAL 0.3 mg/dL (0.1-1.0); PHOSPHORUS 7.4 mg/dL (2.5-4.9); TOTAL PROTEIN, SERUM 6.9 g/dL (6.4-8.2)
[2021-11-27 02:23] LABS: SULFOSALICYLIC ACID,URINE 2+ (Negative)
[2021-11-27 02:24] LABS: BACTERIA,URINE None Seen /HPF (None Seen); RBC,URINE 0-2 /HPF (0-2); WBC,URINE None Seen /HPF (0-5)
[2021-11-27] MEDS ORDERED: ASPIRIN 325 MG TABLET PO ONE (02:30)
[2021-11-27] MEDS ORDERED: BUMETANIDE 0.25 MG/ML 4 ML VIAL IVP ONE (02:30)
[2021-11-27] MEDS ORDERED: ONDANSETRON HCL 4 MG/2 ML VIAL IVP PRN ×2 (03:15→06:30)
[2021-11-27] MEDS ORDERED: ACETAMINOPHEN 325 MG TABLET PO PRN ×2 (03:15→06:30)
[2021-11-27] MEDS ORDERED: 0.9% SODIUM CHLORIDE 10 ML SYRINGE IVP PRN (03:15)
[2021-11-27] MEDS: HydrALAZINE HCL 20 MG/ML VIAL IVP PRN ×2 (05:47→12:58)
[2021-11-27] MEDS ORDERED: MAGNESIUM HYDROXIDE SUSPENSION 30 ML UDCUP PO PRN (06:30)
[2021-11-27] MEDS ORDERED: ZOLPIDEM TARTRATE 5 MG TABLET PO PRN (06:30)
[2021-11-27] MEDS ORDERED: BISACODYL 10 MG RECTAL RECTAL SUPPOSITORY PR PRN (06:30)
[2021-11-27] MEDS ORDERED: MORPHINE SULFATE 2 MG/ML SYRINGE IVP PRN (06:30)
[2021-11-27] MEDS ORDERED: HYDROCODONE/ACETAMINOPHEN 5-325 MG TABLET PO PRN (06:30)
[2021-11-27] MEDS ORDERED: PNEUMOCOCCAL VACCINE POLYVALENT 0.5 ML VIAL [PPSV23] IM. ONE (08:00)
[2021-11-27 08:41] LABS: GLUCOMETER DEV NAME(LOC) 5N.1C; GLUCOSE,POINT OF CARE 136 MG/DL (70-110)
[2021-11-27] MEDS: ASPIRIN 81 MG DR TABLET PO SCH (08:49)
[2021-11-27] MEDS: AmLODIPine BESYLATE 10 MG TABLET PO SCH (08:51)
[2021-11-27] MEDS: PANTOPRAZOLE SODIUM 40 MG DR TABLET PO SCH (08:51)
[2021-11-27] MEDS: CLOPIDOGREL BISULFATE 75 MG TABLET PO SCH (08:51)
[2021-11-27] MEDS: ATORVASTATIN CALCIUM 40 MG TABLET PO SCH (08:51)
[2021-11-27] MEDS: DOCUSATE SODIUM 100 MG CAPSULE PO SCH ×2 (08:52→20:10)
[2021-11-27] MEDS: CARVEDILOL 12.5 MG TABLET PO SCH ×2 (08:52→20:10)
[2021-11-27] MEDS: HEPARIN SODIUM,PORCINE 5,000 UNITS/ML VIAL SQ SCH ×3 (08:52→23:27)
[2021-11-27] MEDS: FUROSEMIDE 20 MG/2 ML VIAL IVP SCH ×2 (08:53→20:10)
[2021-11-27] MEDS: CALCITRIOL 0.25 MCG CAPSULE PO SCH (09:00)
[2021-11-27] MEDS ORDERED: SODIUM CHLORIDE 0.9% 1,000 ML ONE (10:04)
[2021-11-27] MEDS ORDERED: HEPARIN SODIUM,PORCINE 1,000 UNITS/ML VIAL IVCATH ONE ×2 (12:00)
[2021-11-27] MEDS ORDERED: HEPARIN SODIUM,PORCINE 1,000 UNITS/ML VIAL IVP ONE (16:20)
[2021-11-28 05:08] VITALS: BP 136/67
[2021-11-28 07:02] LABS: BASOPHILS % (AUTO) 0.7 % (0.0-2.0); EOSINOPHILS % (AUTO) 4.5 % (1.0-6.0); HEMATOCRIT 32.1 % (41-53); HEMOGLOBIN 10.3 g/dL (13.5-17.5); LYMPHOCYTES # (AUTO) 0.5 K/uL (1.0-4.8); LYMPHOCYTES % (AUTO) 8.6 % (22.0-44.0); MEAN CORPUSCULAR HEMOGLOBIN 20.8 pg (26.0-34.0); MEAN CORPUSCULAR HGB CONC 32.1 G/dL (31.0-37.0); MEAN CORPUSCULAR VOLUME 65 fL (80-100); MONOCYTES # (AUTO) 0.5 K/uL (0.1-1.0); MONOCYTES % (AUTO) 8.3 % (2.0-9.0); NEUTROPHILS # (AUTO) 4.6 K/uL (1.8-7.7); NEUTROPHILS % (AUTO) 77.9 % (40.0-70.0); PLATELET COUNT (AUTO) 179 K/uL (150-450); RED BLOOD CELL COUNT(AUTO) 4.97 MIL/uL (4.50-5.90)
[2021-11-28 07:24] LABS: CALCIUM, TOTAL 7.2 mg/dL (8.8-10.5); CREATININE 5.96 mg/dL (0.60-1.30); POTASSIUM 4.8 mmol/L (3.5-5.1)
[2021-11-28 07:35] VITALS: BP 174/103
[2021-11-28] MEDS: OXYGEN THERAPY IH SCH ×2 (08:00→20:00)
[2021-11-28] MEDS: CLOPIDOGREL BISULFATE 75 MG TABLET PO SCH (09:02)
[2021-11-28] MEDS: AmLODIPine BESYLATE 10 MG TABLET PO SCH (09:02)
[2021-11-28] MEDS: ASPIRIN 81 MG DR TABLET PO SCH (09:02)
[2021-11-28] MEDS: CALCITRIOL 0.25 MCG CAPSULE PO SCH (09:02)
[2021-11-28] MEDS: DOCUSATE SODIUM 100 MG CAPSULE PO SCH ×2 (09:02→20:15)
[2021-11-28] MEDS: PANTOPRAZOLE SODIUM 40 MG DR TABLET PO SCH (09:02)
[2021-11-28] MEDS: LOSARTAN POTASSIUM 25 MG TABLET PO SCH (09:02)
[2021-11-28] MEDS: ATORVASTATIN CALCIUM 40 MG TABLET PO SCH (09:02)
[2021-11-28] MEDS: FUROSEMIDE 20 MG/2 ML VIAL IVP SCH (09:03)
[2021-11-28] MEDS: CARVEDILOL 12.5 MG TABLET PO SCH ×2 (09:03→20:16)
[2021-11-28] MEDS: HEPARIN SODIUM,PORCINE 5,000 UNITS/ML VIAL SQ SCH ×3 (09:03→22:45)
[2021-11-28 11:54] VITALS: BP 135/80
[2021-11-28 16:03] VITALS: BP 132/76
[2021-11-28 20:11] LABS: GLUCOMETER DEV NAME(LOC) 5S.2B; GLUCOSE,POINT OF CARE 148 MG/DL (70-110)
[2021-11-28 20:15] VITALS: BP 104/50
[2021-11-29] VITALS (12 sets, daily range): BP systolic 114–164; BP diastolic 69–117
[2021-11-29 07:41] LABS: BASOPHILS % (AUTO) 0.7 % (0.0-2.0); EOSINOPHILS % (AUTO) 3.1 % (1.0-6.0); HEMATOCRIT 32.8 % (41-53); HEMOGLOBIN 10.3 g/dL (13.5-17.5); LYMPHOCYTES # (AUTO) 0.6 K/uL (1.0-4.8); LYMPHOCYTES % (AUTO) 10.5 % (22.0-44.0); MEAN CORPUSCULAR HEMOGLOBIN 20.7 pg (26.0-34.0); MEAN CORPUSCULAR HGB CONC 31.4 G/dL (31.0-37.0); MEAN CORPUSCULAR VOLUME 66 fL (80-100); MONOCYTES # (AUTO) 0.4 K/uL (0.1-1.0); MONOCYTES % (AUTO) 7.4 % (2.0-9.0); NEUTROPHILS # (AUTO) 4.6 K/uL (1.8-7.7); NEUTROPHILS % (AUTO) 78.3 % (40.0-70.0); PLATELET COUNT (AUTO) 202 K/uL (150-450); RED BLOOD CELL COUNT(AUTO) 4.99 MIL/uL (4.50-5.90); RED CELL DISTRIBUTION WIDTH 16.2 % (11.5-14.5)
[2021-11-29] MEDS: OXYGEN THERAPY IH SCH (08:00)
[2021-11-29] MEDS: CARVEDILOL 12.5 MG TABLET PO SCH (08:02)
[2021-11-29] MEDS: LOSARTAN POTASSIUM 25 MG TABLET PO SCH (08:02)
[2021-11-29] MEDS: ASPIRIN 81 MG DR TABLET PO SCH (08:02)
[2021-11-29] MEDS: HEPARIN SODIUM,PORCINE 5,000 UNITS/ML VIAL SQ SCH (08:02)
[2021-11-29] MEDS: DOCUSATE SODIUM 100 MG CAPSULE PO SCH (08:02)
[2021-11-29] MEDS: ATORVASTATIN CALCIUM 40 MG TABLET PO SCH (08:02)
[2021-11-29] MEDS: CALCITRIOL 0.25 MCG CAPSULE PO SCH (08:03)
[2021-11-29] MEDS: CLOPIDOGREL BISULFATE 75 MG TABLET PO SCH (08:03)
[2021-11-29] MEDS: PANTOPRAZOLE SODIUM 40 MG DR TABLET PO SCH (08:03)
[2021-11-29] MEDS: AmLODIPine BESYLATE 10 MG TABLET PO SCH (08:03)
[2021-11-29 08:05] LABS: CALCIUM, TOTAL 7.1 mg/dL (8.8-10.5); CREATININE 7.26 mg/dL (0.60-1.30); POTASSIUM 5.4 mmol/L (3.5-5.1)
[2021-11-29] MEDS ORDERED: EPOETIN ALFA 10,000 UNITS/ML 2 ML VIAL SQ SCH (09:00)
[2021-11-29] MEDS ORDERED: HEPARIN SODIUM,PORCINE 1,000 UNITS/ML VIAL IVCATH ONE ×2 (12:00)
[2021-11-29] MEDS ORDERED: ZOLP-280 PO (14:19)
[2021-11-29] MEDS ORDERED: EPOE4000 SQ (14:22)
[2021-11-29] MEDS ORDERED: CALC0.25 PO (14:24)
[2021-11-29] MEDS ORDERED: LOSA-381 PO (14:25)
[2021-11-29] MEDS ORDERED: HEPARIN SODIUM,PORCINE 1,000 UNITS/ML VIAL IVP ONE (16:49)
== END 2021-11-29 15:45 | disposition home or self-care (01) | DRG 291 ==
LOC: EMS 01:23 → 5S 03:19
PROVIDERS: ADMIT Internal Medicine; ATTEND Internal Medicine
PROC: 5A1D70Z Performance of Urinary Filtration, Intermittent, Less than 6 Hours Per Day (ICD-10-PCS; principal; 2021-11-27)
PROC: 5A1D70Z Performance of Urinary Filtration, Intermittent, Less than 6 Hours Per Day (ICD-10-PCS; 2021-11-28)
DX: I13.2 Hypertensive heart and chronic kidney disease with heart failure and with stage 5 chronic kidney disease, or end stage renal disease (principal); I50.43 Acute on chronic combined systolic (congestive) and diastolic (congestive) heart failure; N18.6 End stage renal disease; D63.8 Anemia in other chronic diseases classified elsewhere; E78.5 Hyperlipidemia, unspecified; E11.22 Type 2 diabetes mellitus with diabetic chronic kidney disease; I25.10 Atherosclerotic heart disease of native coronary artery without angina pectoris; F03.90 Unspecified dementia, unspecified severity, without behavioral disturbance, psychotic disturbance, mood disturbance, and anxiety; Z20.822 Contact with and (suspected) exposure to COVID-19; I44.0 Atrioventricular block, first degree; I25.5 Ischemic cardiomyopathy; I25.2 Old myocardial infarction; Z79.899 Other long term (current) drug therapy; Z87.891 Personal history of nicotine dependence; Z79.82 Long term (current) use of aspirin; Z95.5 Presence of coronary angioplasty implant and graft; Z91.19 Patient's noncompliance with other medical treatment and regimen; Z99.2 Dependence on renal dialysis; Z79.02 Long term (current) use of antithrombotics/antiplatelets; Z91.15 Patient's noncompliance with renal dialysis; Z28.21 Immunization not carried out because of patient refusal
CPT/HCPCS: 70450; 71045; 80048; 80053; 81001; 81002; 82962; 83605; 83690; 83880; 84100; 84484; 85025; 87040; 87340; 90935; 93005; 99291; J0360; J0610; J0885; J1644; J1940; J3490; J7030; 36415-L1; 36415-TC

== ENCOUNTER 2022-06-02 03:31 | Inpatient (IN) | payer MEDICARE, OTHER ==
[2022-06-02] VITALS (14 sets, daily range): BP systolic 77–171; BP diastolic 61–94
[~2022-06-02] VITALS: Ht 172.7 cm; Wt 85.3 kg
[~2022-06-02 03:31] MED LIST changes: +ALLO300T2 PO; -ATOR40TA28 PO; +ATOR40TA71 PO; +BUME1TAB34 PO; -CALC-840 PO; +CALC667T8 PO; +HYDR25TA84 PO; +LOSA25TA2 PO; +SUCR500T PO; +ZOLP-280 PO
[2022-06-02 04:13] LABS: COVID AG,FIA SOURCE NASAL SWAB
[2022-06-02 04:17] LABS: BASOPHILS % (AUTO) 0.9 % (0.0-2.0); EOSINOPHILS % (AUTO) 4.3 % (1.0-6.0); HEMOGLOBIN 10.3 g/dL (13.5-17.5); LYMPHOCYTES # (AUTO) 0.8 K/uL (1.0-4.8); LYMPHOCYTES % (AUTO) 10.6 % (22.0-44.0); MEAN CORPUSCULAR HGB CONC 30.3 G/dL (31.0-37.0); MEAN CORPUSCULAR VOLUME 70 fL (80-100); MONOCYTES # (AUTO) 0.5 K/uL (0.1-1.0); NEUTROPHILS # (AUTO) 6.1 K/uL (1.8-7.7); NEUTROPHILS % (AUTO) 77.2 % (40.0-70.0); PLATELET COUNT (AUTO) 121 K/uL (150-450); RED BLOOD CELL COUNT(AUTO) 4.88 MIL/uL (4.50-5.90)
[2022-06-02 04:24] LABS: CALCIUM, TOTAL 6.7 mg/dL (8.8-10.5); POTASSIUM 5.2 mmol/L (3.5-5.1)
[2022-06-02 04:30] LABS: ALBUMIN 3.5 g/dL (3.4-5.0); BILIRUBIN,TOTAL 0.3 mg/dL (0.1-1.0); TOTAL PROTEIN, SERUM 7.1 g/dL (6.4-8.2)
[2022-06-02 04:43] LABS: PROTHROMBIN TIME 10.3 SEC (9.4-11.6)
[2022-06-02] MEDS ORDERED: FUROSEMIDE 40 MG/4 ML VIAL IVP ONE (05:00)
[2022-06-02] MEDS ORDERED: ACETAMINOPHEN 325 MG TABLET PO PRN (05:00)
[2022-06-02] MEDS ORDERED: ONDANSETRON HCL 4 MG/2 ML VIAL IVP PRN (05:00)
[2022-06-02] MEDS ORDERED: NiCARDipine HCL 25 MG in SODIUM CHLORIDE 0.9% 240 ML IV PRN (05:00)
[2022-06-02 05:07] LABS: ABG BASE EXCESS -6.6 mmol/L (-2.0-3.0); ABG CARBOXYHEMOGLOBIN 0.1 % (0.0-1.5); ABG HCO3 19.5 mmol/L (22.0-26.0); ABG METHEMOGLOBIN 0.4 % (0.0-1.5); ABG OXYGEN CONTENT 14.8 mL/dL (15.0-23.0); ABG OXYGEN SATURATION 98.7 % (95.0-98.0); ABG OXYHEMOGLOBIN 98.2 % (94.0-100.0); ABG PCO2 38 mmHg (35-45); ABG PH 7.328 (7.35-7.450); ABG TOTAL HEMOGLOBIN 10.5 G/dL (12.0-18.0); PO2, ARTERIAL BG 143.7 mmHg (79.0-87.0); SOURCE, BLOOD GAS ARTERIAL; TEMPERATURE, FAHRENHEIT, BG 98.4 FAHREN (96.0-98.6)
[2022-06-02 05:09] LABS: ABG A-A DIFF O2 134.4 mmHg (10-20.0); O2 DEVICE,BLOOD GAS BIPAP (ROOM AIR); SITE, BLOOD GAS LFT RADIAL
[2022-06-02 05:10] LABS: INSPIRATORY TIME, BG 0.9 SEC
[2022-06-02] MEDS: ASPIRIN 81 MG CHEWABLE TABLET PO SCH (05:12)
[2022-06-02] MEDS ORDERED: ZOLPIDEM TARTRATE 5 MG TABLET PO PRN (05:15)
[2022-06-02] MEDS ORDERED: SODIUM CHLORIDE 0.9% 2,000 ML ONE (06:44)
[2022-06-02] MEDS: CALCIUM ACETATE 667 MG CAPSULE PO SCH ×3 (08:00→17:33)
[2022-06-02] MEDS: BUMETANIDE 1 MG TABLET PO SCH ×3 (09:00→20:16)
[2022-06-02] MEDS: CARVEDILOL 12.5 MG TABLET PO SCH ×3 (09:00→20:16)
[2022-06-02] MEDS ORDERED: DOPamine 400MG/D5W[STANDARD] 250 ML IV ONE (09:15)
[2022-06-02] MEDS ORDERED: DOPamine 400MG/D5W[STANDARD] 250 ML IV PRN (09:45)
[2022-06-02] MEDS ORDERED: HEPARIN SODIUM,PORCINE 1,000 UNITS/ML VIAL IVCATH ONE ×2 (10:30)
[2022-06-02] MEDS: HEPARIN SODIUM,PORCINE 5,000 UNITS/ML VIAL SQ SCH ×2 (11:26→16:43)
[2022-06-02] MEDS: HydrALAZINE HCL 25 MG TABLET PO SCH ×3 (11:28→20:16)
[2022-06-02] MEDS: ALLOPURINOL 300 MG TABLET PO SCH (11:29)
[2022-06-02] MEDS: ATORVASTATIN CALCIUM 40 MG TABLET PO SCH (11:29)
[2022-06-02] MEDS: AmLODIPine BESYLATE 10 MG TABLET PO SCH (11:29)
[2022-06-02] MEDS: CALCITRIOL 0.25 MCG CAPSULE PO SCH (11:30)
[2022-06-02] MEDS: CLOPIDOGREL BISULFATE 75 MG TABLET PO SCH (11:30)
[2022-06-02] MEDS ORDERED: DEXTROSE 50%-WATER 25 GM/50 ML SYRINGE IVP PRN (12:30)
[2022-06-02] MEDS: LABETALOL HCL 5 MG/ML 20 ML VIAL IVP PRN ×5 (13:35→23:24)
[2022-06-02] MEDS ORDERED: PNEUMOCOCCAL VACCINE POLYVALENT 0.5 ML VIAL [PPSV23] IM. ONE (14:15)
[2022-06-02] MEDS ORDERED: INFLUENZA VIRUS VACCINE QVS 2022-23 (6MO+)/PF 60 MCG/0.5 ML SYRINGE IM. ONE (14:15)
[2022-06-02] MEDS ORDERED: LIDOCAINE 2% 11 ML JELLY TP ONE (16:22)
[2022-06-02] MEDS ORDERED: HEPARIN SODIUM,PORCINE 1,000 UNITS/ML VIAL IVP ONE (16:22)
[2022-06-02] MEDS ORDERED: LIDOCAINE 4% 50 ML SOLUTION TP ONE (16:22)
[2022-06-02] MEDS ORDERED: ALBUTEROL SULFATE 2.5 MG/0.5 ML NEB SOLUTION NEB ONE (16:22)
[2022-06-02] MEDS ORDERED: BENZOCAINE 20% 50 MCG/SPRAY 57 GM TP ONE (16:22)
[2022-06-02 20:11] LABS: GLUCOSE,POINT OF CARE 82 MG/DL (70-110)
[2022-06-02 20:11] LABS: GLUCOSE,POINT OF CARE 143 MG/DL (70-110)
[2022-06-02] MEDS: INSULIN LISPRO 100 UNITS/ML SQ PRN (20:19)
[2022-06-03] VITALS (17 sets, daily range): BP systolic 137–179; BP diastolic 78–109
[2022-06-03] MEDS: HEPARIN SODIUM,PORCINE 5,000 UNITS/ML VIAL SQ SCH ×4 (00:13→23:31)
[2022-06-03] MEDS: LABETALOL HCL 5 MG/ML 20 ML VIAL IVP PRN (03:07)
[2022-06-03 05:39] LABS: BASOPHILS % (AUTO) 1.1 % (0.0-2.0); EOSINOPHILS % (AUTO) 5.7 % (1.0-6.0); HEMATOCRIT 33.2 % (41-53); HEMOGLOBIN 10.2 g/dL (13.5-17.5); LYMPHOCYTES # (AUTO) 0.4 K/uL (1.0-4.8); LYMPHOCYTES % (AUTO) 6.8 % (22.0-44.0); MEAN CORPUSCULAR HEMOGLOBIN 21.2 pg (26.0-34.0); MEAN CORPUSCULAR HGB CONC 30.7 G/dL (31.0-37.0); MEAN CORPUSCULAR VOLUME 69 fL (80-100); MONOCYTES # (AUTO) 0.5 K/uL (0.1-1.0); MONOCYTES % (AUTO) 7.8 % (2.0-9.0); NEUTROPHILS # (AUTO) 4.6 K/uL (1.8-7.7); NEUTROPHILS % (AUTO) 78.6 % (40.0-70.0); PLATELET COUNT (AUTO) 101 K/uL (150-450)
[2022-06-03 05:40] LABS: HEMOGLOBIN A1C 6.1 % (3.8-5.6)
[2022-06-03 05:45] LABS: CALCIUM, TOTAL 7.6 mg/dL (8.8-10.5); CREATININE 9.74 mg/dL (0.60-1.30); MAGNESIUM 2.3 mg/dL (1.80-2.40); POTASSIUM 4.3 mmol/L (3.5-5.1)
[2022-06-03] MEDS: CARVEDILOL 12.5 MG TABLET PO SCH ×2 (07:42→21:01)
[2022-06-03] MEDS: LOSARTAN POTASSIUM 25 MG TABLET PO SCH (07:42)
[2022-06-03] MEDS: AmLODIPine BESYLATE 10 MG TABLET PO SCH (07:42)
[2022-06-03] MEDS: CLOPIDOGREL BISULFATE 75 MG TABLET PO SCH (07:43)
[2022-06-03] MEDS: ASPIRIN 81 MG CHEWABLE TABLET PO SCH (07:43)
[2022-06-03] MEDS: CALCIUM ACETATE 667 MG CAPSULE PO SCH ×4 (07:43→18:41)
[2022-06-03] MEDS: ATORVASTATIN CALCIUM 40 MG TABLET PO SCH (07:44)
[2022-06-03] MEDS: BUMETANIDE 1 MG TABLET PO SCH ×2 (07:44→21:01)
[2022-06-03] MEDS: ALLOPURINOL 300 MG TABLET PO SCH (07:44)
[2022-06-03] MEDS: CALCITRIOL 0.25 MCG CAPSULE PO SCH (07:44)
[2022-06-03 07:46] LABS: GLUCOSE,POINT OF CARE 154 MG/DL (70-110)
[2022-06-03 07:51] LABS: GLUCOSE,POINT OF CARE 99 MG/DL (70-110)
[2022-06-03] MEDS ORDERED: HydrALAZINE HCL 50 MG TABLET PO SCH ×2 (09:00→16:00)
[2022-06-03] MEDS ORDERED: SODIUM CHLORIDE 0.9% 1,000 ML ONE (09:58)
[2022-06-03] MEDS ORDERED: ALPRAZolam 0.25 MG TABLET PO ONE (10:15)
[2022-06-03] MEDS ORDERED: HEPARIN SODIUM,PORCINE 1,000 UNITS/ML VIAL IVCATH ONE ×2 (14:15)
[2022-06-03 18:36] LABS: GLUCOSE,POINT OF CARE 95 MG/DL (70-110)
[2022-06-03 18:36] LABS: GLUCOSE,POINT OF CARE 104 MG/DL (70-110)
[2022-06-03] MEDS: HydrALAZINE HCL 25 MG TABLET PO SCH (21:02)
[2022-06-03 22:56] LABS: GLUCOMETER DEV NAME(LOC) 5N.1C; GLUCOSE,POINT OF CARE 106 MG/DL (70-110)
[2022-06-04 00:09] VITALS: BP 165/94
[2022-06-04] MEDS: LABETALOL HCL 5 MG/ML 20 ML VIAL IVP PRN ×2 (00:23→05:00)
[2022-06-04 04:45] VITALS: BP 163/78
[2022-06-04 05:04] VITALS: BP 155/81
[2022-06-04 05:26] LABS: GLUCOMETER DEV NAME(LOC) 5S.2B; GLUCOSE,POINT OF CARE 118 MG/DL (70-110)
[2022-06-04 05:52] LABS: BASOPHILS % (AUTO) 1.3 % (0.0-2.0); HEMATOCRIT 35.1 % (41-53); LYMPHOCYTES # (AUTO) 0.5 K/uL (1.0-4.8); LYMPHOCYTES % (AUTO) 9.5 % (22.0-44.0); MEAN CORPUSCULAR HEMOGLOBIN 21.6 pg (26.0-34.0); MEAN CORPUSCULAR HGB CONC 31.3 G/dL (31.0-37.0); MEAN CORPUSCULAR VOLUME 69 fL (80-100); MONOCYTES # (AUTO) 0.4 K/uL (0.1-1.0); NEUTROPHILS # (AUTO) 3.6 K/uL (1.8-7.7); NEUTROPHILS % (AUTO) 75.2 % (40.0-70.0); PLATELET COUNT (AUTO) 98 K/uL (150-450); RED CELL DISTRIBUTION WIDTH 15.8 % (11.5-14.5)
[2022-06-04 06:03] LABS: ALBUMIN 3.8 g/dL (3.4-5.0); BILIRUBIN,TOTAL 0.4 mg/dL (0.1-1.0); CALCIUM, TOTAL 8.5 mg/dL (8.8-10.5); CREATININE 7.62 mg/dL (0.60-1.30); POTASSIUM 5.4 mmol/L (3.5-5.1); TOTAL PROTEIN, SERUM 7.8 g/dL (6.4-8.2)
[2022-06-04 07:59] VITALS: BP 183/101
[2022-06-04] MEDS ORDERED: SODIUM ZIRCONIUM CYCLOSILICATE 5 GM POWDER PACKET PO ONE (08:00)
[2022-06-04] MEDS: ATORVASTATIN CALCIUM 40 MG TABLET PO SCH (08:44)
[2022-06-04] MEDS: ASPIRIN 81 MG CHEWABLE TABLET PO SCH (08:44)
[2022-06-04] MEDS: CALCIUM ACETATE 667 MG CAPSULE PO SCH ×2 (08:44→12:52)
[2022-06-04] MEDS: LOSARTAN POTASSIUM 25 MG TABLET PO SCH (08:44)
[2022-06-04] MEDS: CARVEDILOL 12.5 MG TABLET PO SCH (08:45)
[2022-06-04] MEDS: CALCITRIOL 0.25 MCG CAPSULE PO SCH (08:45)
[2022-06-04] MEDS: HydrALAZINE HCL 25 MG TABLET PO SCH (08:45)
[2022-06-04] MEDS: AmLODIPine BESYLATE 10 MG TABLET PO SCH (08:45)
[2022-06-04] MEDS: BUMETANIDE 1 MG TABLET PO SCH (08:45)
[2022-06-04] MEDS: CLOPIDOGREL BISULFATE 75 MG TABLET PO SCH (08:46)
[2022-06-04] MEDS: ALLOPURINOL 300 MG TABLET PO SCH (08:46)
[2022-06-04] MEDS: HEPARIN SODIUM,PORCINE 5,000 UNITS/ML VIAL SQ SCH (08:55)
[2022-06-04 11:05] VITALS: BP 152/88
[2022-06-04 11:44] VITALS: BP 161/88
[2022-06-04] MEDS: INSULIN LISPRO 100 UNITS/ML SQ PRN (13:08)
[2022-06-04 15:17] LABS: GLUCOMETER DEV NAME(LOC) 5S.2B; GLUCOSE,POINT OF CARE 148 MG/DL (70-110)
== END 2022-06-04 13:40 | disposition home or self-care (01) | DRG 280 ==
LOC: EMS 03:32 → ICU 05:48 → 5S 06-03 17:15
PROVIDERS: ADMIT Internal Medicine; ATTEND Internal Medicine
PROC: 5A09357 Assistance with Respiratory Ventilation, Less than 24 Consecutive Hours, Continuous Positive Airway Pressure (ICD-10-PCS; principal; 2022-06-02)
PROC: 5A1D70Z Performance of Urinary Filtration, Intermittent, Less than 6 Hours Per Day (ICD-10-PCS; 2022-06-02)
PROC: 5A1D70Z Performance of Urinary Filtration, Intermittent, Less than 6 Hours Per Day (ICD-10-PCS; 2022-06-03)
DX: I13.2 Hypertensive heart and chronic kidney disease with heart failure and with stage 5 chronic kidney disease, or end stage renal disease (principal); I21.A1 Myocardial infarction type 2; I50.33 Acute on chronic diastolic (congestive) heart failure; J96.01 Acute respiratory failure with hypoxia; N18.6 End stage renal disease; I16.1 Hypertensive emergency; E66.01 Morbid (severe) obesity due to excess calories; E78.5 Hyperlipidemia, unspecified; E87.5 Hyperkalemia; F03.90 Unspecified dementia, unspecified severity, without behavioral disturbance, psychotic disturbance, mood disturbance, and anxiety; Z20.822 Contact with and (suspected) exposure to COVID-19; E11.22 Type 2 diabetes mellitus with diabetic chronic kidney disease; D63.1 Anemia in chronic kidney disease; I25.10 Atherosclerotic heart disease of native coronary artery without angina pectoris; Z23 Encounter for immunization; Z79.02 Long term (current) use of antithrombotics/antiplatelets; Z79.82 Long term (current) use of aspirin; Z87.891 Personal history of nicotine dependence; Z79.899 Other long term (current) drug therapy; Z91.199 Patient's noncompliance with other medical treatment and regimen due to unspecified reason; Z95.5 Presence of coronary angioplasty implant and graft; Z68.28 Body mass index [BMI] 28.0-28.9, adult; Z99.2 Dependence on renal dialysis; Z79.84 Long term (current) use of oral hypoglycemic drugs
CPT/HCPCS: 71045; 80048; 80053; 82805; 82962; 83036; 83735; 83880; 84484; 85025; 85610; 85730; 87081; 90686; 90935; 93005; 93308; 94660; 99291; G0378; J1265; J1644; J1940; J3490; J7030; J7050; Q9967; 36415-L1; 36415-TC; G0008; J7613; Z7610

== ENCOUNTER 2022-09-04 08:22 | Inpatient (IN) | payer MEDICARE, OTHER ==
[2022-09-04] VITALS (9 sets, daily range): BP systolic 103–162; BP diastolic 58–79
[~2022-09-04] VITALS: Ht 172.7 cm; Wt 83.3 kg
[~2022-09-04 08:22] MED LIST changes: -ZOLP-280 PO
[2022-09-04] MEDS ORDERED: FUROSEMIDE 40 MG/4 ML VIAL IVP ONE (08:30)
[2022-09-04] MEDS ORDERED: ROCURONIUM BROMIDE 10 MG/ML 5 ML VIAL ONE (08:32)
[2022-09-04] MEDS ORDERED: SUCCINYLCHOLINE CHLORIDE 20 MG/ML 10 ML VIAL ONE (08:34)
[2022-09-04 08:47] LABS: BASOPHILS % (AUTO) 1.1 % (0.0-2.0); EOSINOPHILS % (AUTO) 4.8 % (1.0-6.0); HEMOGLOBIN 10.5 g/dL (13.5-17.5); LYMPHOCYTES # (AUTO) 1.1 K/uL (1.0-4.8); MEAN CORPUSCULAR HEMOGLOBIN 21.2 pg (26.0-34.0); MEAN CORPUSCULAR VOLUME 68 fL (80-100); MONOCYTES # (AUTO) 0.7 K/uL (0.1-1.0); MONOCYTES % (AUTO) 8.2 % (2.0-9.0); NEUTROPHILS # (AUTO) 6.5 K/uL (1.8-7.7); NEUTROPHILS % (AUTO) 73.9 % (40.0-70.0); PLATELET COUNT (AUTO) 186 K/uL (150-450); RED BLOOD CELL COUNT(AUTO) 4.98 MIL/uL (4.50-5.90); RED CELL DISTRIBUTION WIDTH 15.7 % (11.5-14.5)
[2022-09-04 08:55] LABS: CALCIUM, TOTAL 7.4 mg/dL (8.8-10.5); CREATININE 13.66 mg/dL (0.60-1.30); POTASSIUM 5.1 mmol/L (3.5-5.1)
[2022-09-04] MEDS ORDERED: ETOMIDATE 2 MG/ML 10 ML VIAL IVP ONE (09:00)
[2022-09-04] MEDS: PROPOFOL 1000 MG/ISO-OSM 100 ML IV PRN ×3 (09:00→16:49)
[2022-09-04] MEDS ORDERED: SUCCINYLCHOLINE CHLORIDE 20 MG/ML 10 ML VIAL IVP ONE (09:00)
[2022-09-04] MEDS ORDERED: VECURONIUM BROMIDE 10 MG/VIAL ONE (09:01)
[2022-09-04] MEDS ORDERED: MIDAZOLAM HCL 5 MG/ML VIAL ONE (09:01)
[2022-09-04] MEDS ORDERED: MIDAZOLAM HCL 2 MG/2 ML VIAL IVP ONE (09:15)
[2022-09-04] MEDS ORDERED: VECURONIUM BROMIDE 10 MG/VIAL IVP ONE (09:15)
[2022-09-04 09:20] LABS: COVID AG,FIA SOURCE NASAL SWAB
[2022-09-04 09:24] LABS: ALBUMIN 3.9 g/dL (3.4-5.0); BILIRUBIN,TOTAL 0.4 mg/dL (0.1-1.0); TOTAL PROTEIN, SERUM 7.7 g/dL (6.4-8.2)
[2022-09-04 09:36] LABS: PROTHROMBIN TIME 10.8 SEC (9.4-11.6)
[2022-09-04 11:10] LABS: ABG CARBOXYHEMOGLOBIN 0.5 % (0.0-1.5); ABG HCO3 17.6 mmol/L (22.0-26.0); ABG METHEMOGLOBIN 0.4 % (0.0-1.5); ABG OXYGEN CONTENT 17.1 mL/dL (15.0-23.0); ABG OXYHEMOGLOBIN 98.1 % (94.0-100.0); ABG PCO2 57 mmHg (35-45); PO2, ARTERIAL BG 209.1 mmHg (79.0-87.0); SOURCE, BLOOD GAS ARTERIAL
[2022-09-04 11:12] LABS: ABG A-A DIFF O2 454.8 mmHg (10-20.0); ABG PH 7.172 (7.35-7.450); O2 DEVICE,BLOOD GAS VENTILATOR (ROOM AIR); SITE, BLOOD GAS RT RADIAL; VT, ABG 400 ml
[2022-09-04 11:13] LABS: PEEP,BG 5 cm H2O; SPONTANEOUS VT, BG 407 ml
[2022-09-04] MEDS ORDERED: KETAMINE HCL 500 MG in DEXTROSE 5%-WATER 490 ML IV PRN (11:45)
[2022-09-04 11:56] LABS: GLUCOSE,POINT OF CARE 253 MG/DL (70-110)
[2022-09-04] MEDS ORDERED: HEPARIN SODIUM,PORCINE 1,000 UNITS/ML VIAL IVP ONE ×2 (12:00)
[2022-09-04] MEDS ORDERED: ALBUMIN HUMAN 25%-12.5GM/50ML IV BOTTLE IV ONE (12:00)
[2022-09-04] MEDS ORDERED: DEXTROSE 50%-WATER 25 GM/50 ML SYRINGE IVP PRN (18:00)
[2022-09-04] MEDS ORDERED: ZOLPIDEM TARTRATE 5 MG TABLET PO PRN (18:00)
[2022-09-04] MEDS ORDERED: ALBUTEROL SULFATE 2.5 MG/0.5 ML NEB SOLUTION NEB PRN (18:00)
[2022-09-04] MEDS ORDERED: IPRATROPIUM BROMIDE 0.5 MG/2.5 ML NEB SOLUTION NEB PRN (18:00)
[2022-09-04] MEDS ORDERED: ONDANSETRON HCL 4 MG/2 ML VIAL IVP PRN (18:00)
[2022-09-04] MEDS ORDERED: MAGNESIUM HYDROXIDE SUSPENSION 30 ML UDCUP NG PRN (18:00)
[2022-09-04] MEDS ORDERED: MORPHINE SULFATE 2 MG/ML SYRINGE IVP PRN (18:00)
[2022-09-04] MEDS ORDERED: BISACODYL 10 MG RECTAL RECTAL SUPPOSITORY PR PRN (18:00)
[2022-09-04 19:05] LABS: ABG CARBOXYHEMOGLOBIN 0.2 % (0.0-1.5); ABG HCO3 19.1 mmol/L (22.0-26.0); ABG METHEMOGLOBIN 0.4 % (0.0-1.5); ABG OXYGEN CONTENT 16.3 mL/dL (15.0-23.0); ABG OXYGEN SATURATION 98.3 % (95.0-98.0); ABG OXYHEMOGLOBIN 97.7 % (94.0-100.0); ABG PCO2 42 mmHg (35-45); ABG PH 7.285 (7.35-7.450); ABG TOTAL HEMOGLOBIN 11.7 G/dL (12.0-18.0); PO2, ARTERIAL BG 139.4 mmHg (79.0-87.0); SOURCE, BLOOD GAS ARTERIAL; TEMPERATURE, FAHRENHEIT, BG 98.6 FAHREN (96.0-98.6)
[2022-09-04 19:09] LABS: O2 DEVICE,BLOOD GAS VENTILATOR (ROOM AIR); SITE, BLOOD GAS RT RADIAL
[2022-09-04 19:10] LABS: PEEP,BG 5 cm H2O; VT, ABG 400 ml
[2022-09-04] MEDS: FentaNYL CIT 1000MCG/0.9% NACL 100 ML IV PRN (19:57)
[2022-09-04] MEDS ORDERED: HEPARIN SODIUM,PORCINE 1,000 UNITS/ML VIAL IVCATH ONE ×2 (20:45)
[2022-09-04] MEDS ORDERED: CARVEDILOL 12.5 MG TABLET NG SCH (21:00)
[2022-09-04] MEDS ORDERED: ALBUMIN HUMAN 25%-25GM/100ML 100 ML IV PRN (21:00)
[2022-09-04] MEDS: MIDAZOLAM HCL 100 MG in SODIUM CHLORIDE 0.9% 180 ML IV PRN (22:43)
[2022-09-05] VITALS (16 sets, daily range): BP systolic 131–157; BP diastolic 65–78
[2022-09-05] MEDS: CefTRIAXone SODIUM 2 GM in DEXTROSE 5%-WATER 50 ML IV SCH ×2 (00:11→17:17)
[2022-09-05] MEDS: DOXYCYCLINE HYCLATE 100 MG in DEXTROSE 5%-WATER 100 ML IV SCH ×3 (01:03→17:44)
[2022-09-05] MEDS: HEPARIN SODIUM,PORCINE 5,000 UNITS/ML VIAL SQ SCH ×3 (01:03→15:56)
[2022-09-05] MEDS: FentaNYL CIT 1000MCG/0.9% NACL 100 ML IV PRN ×3 (02:53→15:40)
[2022-09-05 03:40] LABS: APPEARANCE,URINE CLEAR (CLEAR); BILIRUBIN,URINE NEGATIVE (NEGATIVE); GLUCOSE, URINE (UA) 150-200 mg/dL (NEGATIVE); KETONES,URINE NEGATIVE (NEGATIVE); LEUKOCYTE ESTERASE ,URINE SMALL (NEGATIVE); NITRATE,URINE NEGATIVE (NEGATIVE); OCCULT BLOOD,URINE SMALL (NEGATIVE); PH,URINE 6.5 (5.0-8.0); PROTEIN,URINE 300-600,SEE CONFIRM mg/dL (NEGATIVE); SPECIFIC GRAVITIY, URINE 1.011 (1.003-1.030); UROBILINOGEN,URINE <=1.0 mg/dL (<=1.0)
[2022-09-05 03:57] LABS: AMORPHOUS SEDIMENT,UR Few /LPF (None Seen); BACTERIA,URINE Few /HPF (None Seen); RBC,URINE 0-2 /HPF (0-2); SQUAMOUS EPITHELIAL CELL,UR Few /LPF (None Seen)
[2022-09-05 03:58] LABS: SULFOSALICYLIC ACID,URINE 4+ (Negative)
[2022-09-05] MEDS: ATORVASTATIN CALCIUM 40 MG TABLET NG SCH (08:12)
[2022-09-05] MEDS: AmLODIPine BESYLATE 10 MG TABLET NG SCH (08:12)
[2022-09-05] MEDS: CLOPIDOGREL BISULFATE 75 MG TABLET NG SCH (08:12)
[2022-09-05] MEDS: ACETAMINOPHEN 325 MG TABLET NG PRN ×2 (08:12→13:30)
[2022-09-05] MEDS: PANTOPRAZOLE SODIUM 40 MG/VIAL IVP SCH (08:13)
[2022-09-05] MEDS ORDERED: CARVEDILOL 6.25 MG TABLET NG SCH (09:00)
[2022-09-05 09:16] LABS: ABG BASE EXCESS -1.1 mmol/L (-2.0-3.0); ABG CARBOXYHEMOGLOBIN 0.2 % (0.0-1.5); ABG HCO3 23.1 mmol/L (22.0-26.0); ABG METHEMOGLOBIN 0.3 % (0.0-1.5); ABG OXYGEN CONTENT 12.3 mL/dL (15.0-23.0); ABG OXYGEN SATURATION 88.1 % (95.0-98.0); ABG OXYHEMOGLOBIN 87.7 % (94.0-100.0); ABG PCO2 55 mmHg (35-45); ABG PH 7.286 (7.35-7.450); ABG TOTAL HEMOGLOBIN 9.9 G/dL (12.0-18.0); O2 DEVICE,BLOOD GAS VENTILATOR (ROOM AIR); PEEP,BG 5 cm H2O; PO2, ARTERIAL BG 60.7 mmHg (79.0-87.0); SITE, BLOOD GAS LFT RADIAL; SOURCE, BLOOD GAS ARTERIAL; SPONTANEOUS VT, BG 449 ml; TEMPERATURE, FAHRENHEIT, BG 99.5 FAHREN (96.0-98.6); VT, ABG 400 ml
[2022-09-05 09:17] LABS: ABG A-A DIFF O2 305.9 mmHg (10-20.0)
[2022-09-05] MEDS: ASPIRIN 81 MG DR TABLET NG SCH (10:12)
[2022-09-05] MEDS: MIDAZOLAM HCL 100 MG in SODIUM CHLORIDE 0.9% 180 ML IV PRN (10:53)
[2022-09-05] MEDS ORDERED: SODIUM CHLORIDE 0.9% 250 ML IV ONE (17:20)
[2022-09-05 17:41] LABS: GLUCOSE,POINT OF CARE 64 MG/DL (70-110)
[2022-09-05 17:41] LABS: GLUCOSE,POINT OF CARE 120 MG/DL (70-110)
[2022-09-05] MEDS ORDERED: SODIUM CHLORIDE 0.9% 1,000 ML ONE (20:54)
[2022-09-05] MEDS ORDERED: HEPARIN SODIUM,PORCINE 1,000 UNITS/ML VIAL IVCATH ONE ×2 (23:30)
[2022-09-06] VITALS (11 sets, daily range): BP systolic 116–163; BP diastolic 62–78
[2022-09-06] MEDS: ACETAMINOPHEN 325 MG TABLET NG PRN ×3 (00:16→17:48)
[2022-09-06] MEDS: MIDAZOLAM HCL 100 MG in SODIUM CHLORIDE 0.9% 180 ML IV PRN ×2 (01:17→23:04)
[2022-09-06] MEDS: FentaNYL CIT 1000MCG/0.9% NACL 100 ML IV PRN (04:10)
[2022-09-06] MEDS: CARVEDILOL 12.5 MG TABLET NG SCH ×2 (04:44→19:42)
[2022-09-06 05:16] LABS: GLUCOSE,POINT OF CARE 77 MG/DL (70-110)
[2022-09-06] MEDS: DOXYCYCLINE HYCLATE 100 MG in DEXTROSE 5%-WATER 100 ML IV SCH ×2 (07:51→17:48)
[2022-09-06] MEDS: HEPARIN SODIUM,PORCINE 5,000 UNITS/ML VIAL SQ SCH ×3 (08:53→16:18)
[2022-09-06] MEDS: ASPIRIN 81 MG DR TABLET NG SCH (08:53)
[2022-09-06] MEDS: ATORVASTATIN CALCIUM 40 MG TABLET NG SCH (08:53)
[2022-09-06] MEDS: AmLODIPine BESYLATE 10 MG TABLET NG SCH (08:53)
[2022-09-06] MEDS: PANTOPRAZOLE SODIUM 40 MG/VIAL IVP SCH (08:53)
[2022-09-06] MEDS: CLOPIDOGREL BISULFATE 75 MG TABLET NG SCH (08:54)
[2022-09-06 09:24] LABS: BASOPHILS % (AUTO) 1.1 % (0.0-2.0); EOSINOPHILS % (AUTO) 1.3 % (1.0-6.0); HEMATOCRIT 29.9 % (41-53); HEMOGLOBIN 9.2 g/dL (13.5-17.5); LYMPHOCYTES # (AUTO) 0.5 K/uL (1.0-4.8); LYMPHOCYTES % (AUTO) 5.7 % (22.0-44.0); MEAN CORPUSCULAR HEMOGLOBIN 21.1 pg (26.0-34.0); MEAN CORPUSCULAR HGB CONC 30.9 G/dL (31.0-37.0); MEAN CORPUSCULAR VOLUME 68 fL (80-100); MONOCYTES # (AUTO) 0.9 K/uL (0.1-1.0); NEUTROPHILS # (AUTO) 7.5 K/uL (1.8-7.7); NEUTROPHILS % (AUTO) 81.9 % (40.0-70.0); PLATELET COUNT (AUTO) 137 K/uL (150-450); RED BLOOD CELL COUNT(AUTO) 4.37 MIL/uL (4.50-5.90); RED CELL DISTRIBUTION WIDTH 15.4 % (11.5-14.5)
[2022-09-06 09:34] LABS: CALCIUM, TOTAL 7.2 mg/dL (8.8-10.5); CREATININE 8.88 mg/dL (0.60-1.30); POTASSIUM 4.1 mmol/L (3.5-5.1)
[2022-09-06 10:26] LABS: GLUCOSE,POINT OF CARE 80 MG/DL (70-110)
[2022-09-06 10:42] LABS: ABG A-A DIFF O2 225.8 mmHg (10-20.0); ABG CARBOXYHEMOGLOBIN 0.3 % (0.0-1.5); ABG HCO3 21.5 mmol/L (22.0-26.0); ABG METHEMOGLOBIN 0.3 % (0.0-1.5); ABG OXYGEN CONTENT 13.6 mL/dL (15.0-23.0); ABG OXYGEN SATURATION 95.8 % (95.0-98.0); ABG OXYHEMOGLOBIN 95.2 % (94.0-100.0); ABG PCO2 39 mmHg (35-45); ABG PH 7.359 (7.35-7.450); ABG TOTAL HEMOGLOBIN 10.1 G/dL (12.0-18.0); O2 DEVICE,BLOOD GAS VENTILATOR (ROOM AIR); PO2, ARTERIAL BG 85.9 mmHg (79.0-87.0); SITE, BLOOD GAS LFT RADIAL; SOURCE, BLOOD GAS ARTERIAL
[2022-09-06 10:43] LABS: CPAP, BG 5 cm H2O; PRESSURE SUPPORT, BG 8 cm H2O; SPONTANEOUS VT, BG 545 ml; VENT MODE, BG CPAP (ROOM AIR)
[2022-09-06 12:36] LABS: GLUCOSE,POINT OF CARE 75 MG/DL (70-110)
[2022-09-06] MEDS: CefTRIAXone SODIUM 2 GM in DEXTROSE 5%-WATER 50 ML IV SCH (17:20)
[2022-09-06 19:15] LABS: GLUCOSE,POINT OF CARE 82 MG/DL (70-110)
[2022-09-06] MEDS ORDERED: TELM80TA10 PO (19:41)
[2022-09-06] MEDS ORDERED: ATOR-2 PO (19:41)
[2022-09-06] MEDS ORDERED: ERGO500054 PO (19:41)
[2022-09-07] VITALS (16 sets, daily range): BP systolic 108–179; BP diastolic 57–83
[2022-09-07] MEDS: HEPARIN SODIUM,PORCINE 5,000 UNITS/ML VIAL SQ SCH ×3 (00:30→16:28)
[2022-09-07 05:31] LABS: GLUCOSE,POINT OF CARE 74 MG/DL (70-110)
[2022-09-07 05:44] LABS: BASOPHILS % (AUTO) 0.7 % (0.0-2.0); EOSINOPHILS % (AUTO) 1.4 % (1.0-6.0); HEMATOCRIT 29.7 % (41-53); HEMOGLOBIN 9.1 g/dL (13.5-17.5); LYMPHOCYTES # (AUTO) 0.4 K/uL (1.0-4.8); MEAN CORPUSCULAR HGB CONC 30.7 G/dL (31.0-37.0); MEAN CORPUSCULAR VOLUME 68 fL (80-100); MONOCYTES # (AUTO) 0.9 K/uL (0.1-1.0); MONOCYTES % (AUTO) 9.2 % (2.0-9.0); NEUTROPHILS # (AUTO) 7.9 K/uL (1.8-7.7); NEUTROPHILS % (AUTO) 84.7 % (40.0-70.0); PLATELET COUNT (AUTO) 135 K/uL (150-450); RED BLOOD CELL COUNT(AUTO) 4.34 MIL/uL (4.50-5.90); RED CELL DISTRIBUTION WIDTH 15.8 % (11.5-14.5)
[2022-09-07 06:16] LABS: POTASSIUM 4.3 mmol/L (3.5-5.1)
[2022-09-07 06:17] LABS: ALBUMIN 2.7 g/dL (3.4-5.0); BILIRUBIN,TOTAL 0.4 mg/dL (0.1-1.0); CREATININE 10.92 mg/dL (0.60-1.30); TOTAL PROTEIN, SERUM 6.4 g/dL (6.4-8.2)
[2022-09-07 06:18] LABS: % IRON SATURATION 8.7 % (30-44)
[2022-09-07] MEDS: DOXYCYCLINE HYCLATE 100 MG in DEXTROSE 5%-WATER 100 ML IV SCH ×2 (06:40→19:23)
[2022-09-07 06:52] LABS: GLUCOSE,POINT OF CARE 90 MG/DL (70-110)
[2022-09-07] MEDS: ASPIRIN 81 MG DR TABLET NG SCH (08:25)
[2022-09-07] MEDS: CLOPIDOGREL BISULFATE 75 MG TABLET NG SCH (08:25)
[2022-09-07] MEDS: ACETAMINOPHEN 325 MG TABLET NG PRN ×2 (08:25→20:54)
[2022-09-07] MEDS: AmLODIPine BESYLATE 10 MG TABLET NG SCH (08:25)
[2022-09-07] MEDS: CARVEDILOL 12.5 MG TABLET NG SCH ×2 (08:25→20:53)
[2022-09-07] MEDS: ATORVASTATIN CALCIUM 40 MG TABLET NG SCH (08:26)
[2022-09-07] MEDS: PANTOPRAZOLE SODIUM 40 MG/VIAL IVP SCH (08:26)
[2022-09-07 13:06] LABS: GLUCOSE,POINT OF CARE 79 MG/DL (70-110)
[2022-09-07] MEDS ORDERED: SUCCINYLCHOLINE CHLORIDE 20 MG/ML 10 ML VIAL IM ONE (14:46)
[2022-09-07] MEDS ORDERED: ETOMIDATE 2 MG/ML 10 ML VIAL IV ONE (14:46)
[2022-09-07] MEDS ORDERED: VECURONIUM BROMIDE 10 MG/VIAL IV ONE (14:46)
[2022-09-07] MEDS ORDERED: HEPARIN SODIUM,PORCINE 1,000 UNITS/ML VIAL IVCATH ONE ×2 (16:30)
[2022-09-07] MEDS: MetroNIDAZOLE 500 MG TABLET PO SCH (18:29)
[2022-09-07] MEDS: CefTRIAXone SODIUM 2 GM in DEXTROSE 5%-WATER 50 ML IV SCH (18:30)
[2022-09-07 19:01] LABS: GLUCOSE,POINT OF CARE 83 MG/DL (70-110)
[2022-09-07] MEDS ORDERED: DEXMEDETOMIDINE HCL 400 MCG in SODIUM CHLORIDE 0.9% 96 ML IV PRN (19:45)
[2022-09-07 21:05] LABS: INFLUENZA TYPE A NEGATIVE FOR TYPE A (NEGATIVE); INFLUENZA TYPE B NEGATIVE FOR TYPE B (NEGATIVE)
[2022-09-08] VITALS: BP 160/71
[2022-09-08] MEDS ORDERED: SODIUM CHLORIDE 0.9% 250 ML IV ONE (00:10)
[2022-09-08] MEDS: HEPARIN SODIUM,PORCINE 5,000 UNITS/ML VIAL SQ SCH ×4 (00:11→23:53)
[2022-09-08] MEDS: MetroNIDAZOLE 500 MG TABLET PO SCH ×4 (00:11→23:53)
[2022-09-08 00:41] LABS: GLUCOSE,POINT OF CARE 100 MG/DL (70-110)
[2022-09-08] MEDS: FentaNYL CIT 1000MCG/0.9% NACL 100 ML IV PRN (02:36)
[2022-09-08 04:00] VITALS: BP 171/85
[2022-09-08 05:53] LABS: BASOPHILS % (AUTO) 0.6 % (0.0-2.0); EOSINOPHILS % (AUTO) 1.7 % (1.0-6.0); HEMATOCRIT 30.2 % (41-53); HEMOGLOBIN 9.2 g/dL (13.5-17.5); LYMPHOCYTES # (AUTO) 0.4 K/uL (1.0-4.8); LYMPHOCYTES % (AUTO) 4.1 % (22.0-44.0); MEAN CORPUSCULAR HEMOGLOBIN 20.7 pg (26.0-34.0); MEAN CORPUSCULAR HGB CONC 30.6 G/dL (31.0-37.0); MEAN CORPUSCULAR VOLUME 68 fL (80-100); MONOCYTES # (AUTO) 0.8 K/uL (0.1-1.0); MONOCYTES % (AUTO) 8.3 % (2.0-9.0); NEUTROPHILS # (AUTO) 7.8 K/uL (1.8-7.7); PLATELET COUNT (AUTO) 150 K/uL (150-450); RED BLOOD CELL COUNT(AUTO) 4.47 MIL/uL (4.50-5.90); RED CELL DISTRIBUTION WIDTH 16.1 % (11.5-14.5)
[2022-09-08 06:07] LABS: ALBUMIN 2.8 g/dL (3.4-5.0); BILIRUBIN,TOTAL 0.5 mg/dL (0.1-1.0); CALCIUM, TOTAL 7.6 mg/dL (8.8-10.5); CREATININE 8.09 mg/dL (0.60-1.30); POTASSIUM 4.2 mmol/L (3.5-5.1); TOTAL PROTEIN, SERUM 6.8 g/dL (6.4-8.2)
[2022-09-08] MEDS: DOXYCYCLINE HYCLATE 100 MG in DEXTROSE 5%-WATER 100 ML IV SCH ×2 (06:09→18:12)
[2022-09-08] MEDS: HydrALAZINE HCL 20 MG/ML VIAL IVP PRN ×2 (06:09→17:12)
[2022-09-08 06:22] LABS: NEUTROPHILS % (AUTO) 85.3 % (40.0-70.0)
[2022-09-08] MEDS: ACETAMINOPHEN 325 MG TABLET NG PRN (06:26)
[2022-09-08 07:01] LABS: GLUCOSE,POINT OF CARE 94 MG/DL (70-110)
[2022-09-08] MEDS: PANTOPRAZOLE SODIUM 40 MG/VIAL IVP SCH (07:54)
[2022-09-08] MEDS: CARVEDILOL 12.5 MG TABLET NG SCH ×2 (07:54→20:37)
[2022-09-08] MEDS: AmLODIPine BESYLATE 10 MG TABLET NG SCH (07:54)
[2022-09-08] MEDS: ATORVASTATIN CALCIUM 40 MG TABLET NG SCH (07:55)
[2022-09-08] MEDS: CLOPIDOGREL BISULFATE 75 MG TABLET NG SCH (07:55)
[2022-09-08] MEDS: ASPIRIN 81 MG DR TABLET NG SCH (07:55)
[2022-09-08 08:00] VITALS: BP 126/60
[2022-09-08 12:00] VITALS: BP 145/72
[2022-09-08 16:00] VITALS: BP 161/78
[2022-09-08] MEDS: CefTRIAXone SODIUM 2 GM in DEXTROSE 5%-WATER 50 ML IV SCH (17:01)
[2022-09-08 20:00] VITALS: BP 161/74
[2022-09-08] MEDS ORDERED: HEPARIN SODIUM,PORCINE 1,000 UNITS/ML VIAL IVP ONE (22:20)
[2022-09-09] VITALS (15 sets, daily range): BP systolic 138–182; BP diastolic 69–85
[2022-09-09 00:11] LABS: GLUCOSE,POINT OF CARE 77 MG/DL (70-110)
[2022-09-09 00:11] LABS: GLUCOSE,POINT OF CARE 104 MG/DL (70-110)
[2022-09-09] MEDS: HydrALAZINE HCL 20 MG/ML VIAL IVP PRN ×2 (02:58→21:49)
[2022-09-09] MEDS ORDERED: SODIUM CHLORIDE 0.9% 1,000 ML ONE (05:13)
[2022-09-09 06:10] LABS: BASOPHILS % (AUTO) 0.7 % (0.0-2.0); HEMATOCRIT 30.3 % (41-53); HEMOGLOBIN 9.5 g/dL (13.5-17.5); LYMPHOCYTES # (AUTO) 0.4 K/uL (1.0-4.8); LYMPHOCYTES % (AUTO) 4.4 % (22.0-44.0); MEAN CORPUSCULAR HGB CONC 31.3 G/dL (31.0-37.0); MEAN CORPUSCULAR VOLUME 67 fL (80-100); MONOCYTES # (AUTO) 0.8 K/uL (0.1-1.0); MONOCYTES % (AUTO) 8.2 % (2.0-9.0); NEUTROPHILS % (AUTO) 84.7 % (40.0-70.0); PLATELET COUNT (AUTO) 176 K/uL (150-450); RED BLOOD CELL COUNT(AUTO) 4.53 MIL/uL (4.50-5.90); RED CELL DISTRIBUTION WIDTH 15.9 % (11.5-14.5)
[2022-09-09] MEDS: INSULIN LISPRO 100 UNITS/ML SQ PRN ×2 (06:14→11:08)
[2022-09-09 06:20] LABS: ALBUMIN 2.7 g/dL (3.4-5.0); BILIRUBIN,TOTAL 0.4 mg/dL (0.1-1.0); CALCIUM, TOTAL 7.6 mg/dL (8.8-10.5); CREATININE 10.5 mg/dL (0.60-1.30); MAGNESIUM 2.6 mg/dL (1.80-2.40); POTASSIUM 4.2 mmol/L (3.5-5.1); TOTAL PROTEIN, SERUM 7.1 g/dL (6.4-8.2)
[2022-09-09] MEDS ORDERED: HEPARIN SODIUM,PORCINE 1,000 UNITS/ML VIAL IVCATH ONE ×2 (08:00)
[2022-09-09 09:18] LABS: PHOSPHORUS 11.1 mg/dL (2.5-4.9)
[2022-09-09] MEDS: CARVEDILOL 12.5 MG TABLET NG SCH ×2 (09:22→20:36)
[2022-09-09] MEDS: ATORVASTATIN CALCIUM 40 MG TABLET NG SCH (09:22)
[2022-09-09] MEDS: PANTOPRAZOLE SODIUM 40 MG/VIAL IVP SCH (09:22)
[2022-09-09] MEDS: AmLODIPine BESYLATE 10 MG TABLET NG SCH (09:22)
[2022-09-09] MEDS: ASPIRIN 81 MG DR TABLET NG SCH (09:22)
[2022-09-09] MEDS: DOXYCYCLINE HYCLATE 100 MG in DEXTROSE 5%-WATER 100 ML IV SCH ×2 (09:22→17:53)
[2022-09-09] MEDS: CLOPIDOGREL BISULFATE 75 MG TABLET NG SCH (09:22)
[2022-09-09] MEDS: HEPARIN SODIUM,PORCINE 5,000 UNITS/ML VIAL SQ SCH ×3 (09:22→15:28)
[2022-09-09] MEDS: MetroNIDAZOLE 500 MG TABLET PO SCH ×4 (09:23→23:44)
[2022-09-09] MEDS ORDERED: SODIUM CHLORIDE 0.9% 250 ML IV ONE (10:06)
[2022-09-09] MEDS: EPOETIN ALFA 10,000 UNITS/ML 2 ML VIAL SQ SCH (10:26)
[2022-09-09 10:31] LABS: GLUCOSE,POINT OF CARE 125 MG/DL (70-110)
[2022-09-09] MEDS: SEVELAMER CARBONATE 800 MG POWDER PACKET NG SCH ×2 (12:10→20:37)
[2022-09-09 13:36] LABS: GLUCOSE,POINT OF CARE 142 MG/DL (70-110)
[2022-09-09 15:40] LABS: ABG BASE EXCESS 2.6 mmol/L (-2.0-3.0); ABG CARBOXYHEMOGLOBIN 0.6 % (0.0-1.5); ABG HCO3 26.8 mmol/L (22.0-26.0); ABG METHEMOGLOBIN 0.3 % (0.0-1.5); ABG OXYGEN CONTENT 14.4 mL/dL (15.0-23.0); ABG OXYGEN SATURATION 97.3 % (95.0-98.0); ABG OXYHEMOGLOBIN 96.4 % (94.0-100.0); ABG PCO2 36 mmHg (35-45); ABG PH 7.477 (7.35-7.450); ABG TOTAL HEMOGLOBIN 10.5 G/dL (12.0-18.0); PO2, ARTERIAL BG 89.6 mmHg (79.0-87.0); SOURCE, BLOOD GAS ARTERIAL; TEMPERATURE, FAHRENHEIT, BG 98.6 FAHREN (96.0-98.6)
[2022-09-09 15:41] LABS: ABG A-A DIFF O2 117.9 mmHg (10-20.0); O2 DEVICE,BLOOD GAS VENTILATOR (ROOM AIR); SITE, BLOOD GAS LFT RADIAL; VENT MODE, BG SPONTANEOUS (ROOM AIR)
[2022-09-09 15:42] LABS: PEEP,BG 5 cm H2O; PRESSURE SUPPORT, BG 8 cm H2O; SPONTANEOUS VT, BG 1225 ml
[2022-09-09] MEDS ORDERED: HEPARIN SODIUM,PORCINE 1,000 UNITS/ML VIAL IVP ONE (16:55)
[2022-09-09] MEDS: CefTRIAXone SODIUM 2 GM in DEXTROSE 5%-WATER 50 ML IV SCH (17:05)
[2022-09-09 19:41] LABS: GLUCOSE,POINT OF CARE 135 MG/DL (70-110)
[2022-09-10] VITALS (14 sets, daily range): BP systolic 133–162; BP diastolic 58–99
[2022-09-10] MEDS: HEPARIN SODIUM,PORCINE 5,000 UNITS/ML VIAL SQ SCH ×3 (00:18→16:00)
[2022-09-10] MEDS: DOXYCYCLINE HYCLATE 100 MG in DEXTROSE 5%-WATER 100 ML IV SCH ×2 (06:08→22:09)
[2022-09-10 06:22] LABS: BASOPHILS % (AUTO) 1.1 % (0.0-2.0); HEMATOCRIT 32.3 % (41-53); HEMOGLOBIN 9.8 g/dL (13.5-17.5); LYMPHOCYTES # (AUTO) 0.5 K/uL (1.0-4.8); LYMPHOCYTES % (AUTO) 6.9 % (22.0-44.0); MEAN CORPUSCULAR HEMOGLOBIN 20.4 pg (26.0-34.0); MEAN CORPUSCULAR HGB CONC 30.4 G/dL (31.0-37.0); MEAN CORPUSCULAR VOLUME 67 fL (80-100); MONOCYTES # (AUTO) 0.7 K/uL (0.1-1.0); NEUTROPHILS # (AUTO) 5.7 K/uL (1.8-7.7); PLATELET COUNT (AUTO) 200 K/uL (150-450); RED BLOOD CELL COUNT(AUTO) 4.82 MIL/uL (4.50-5.90)
[2022-09-10 06:37] LABS: BILIRUBIN,TOTAL 0.4 mg/dL (0.1-1.0); CALCIUM, TOTAL 7.9 mg/dL (8.8-10.5); CREATININE 8.61 mg/dL (0.60-1.30); MAGNESIUM 2.5 mg/dL (1.80-2.40); TOTAL PROTEIN, SERUM 7.4 g/dL (6.4-8.2)
[2022-09-10 08:21] LABS: GLUCOSE,POINT OF CARE 116 MG/DL (70-110)
[2022-09-10 08:24] LABS: PHOSPHORUS 7.1 mg/dL (2.5-4.9)
[2022-09-10] MEDS: PANTOPRAZOLE SODIUM 40 MG/VIAL IVP SCH (08:59)
[2022-09-10] MEDS: MetroNIDAZOLE 500 MG TABLET PO SCH ×2 (09:00→16:00)
[2022-09-10] MEDS: SEVELAMER CARBONATE 800 MG POWDER PACKET NG SCH (09:00)
[2022-09-10] MEDS: ATORVASTATIN CALCIUM 40 MG TABLET NG SCH (09:00)
[2022-09-10] MEDS: ASPIRIN 81 MG DR TABLET NG SCH (09:00)
[2022-09-10] MEDS: CARVEDILOL 12.5 MG TABLET NG SCH (09:00)
[2022-09-10] MEDS: AmLODIPine BESYLATE 10 MG TABLET NG SCH (09:00)
[2022-09-10] MEDS: CLOPIDOGREL BISULFATE 75 MG TABLET NG SCH (09:00)
[2022-09-10] MEDS ORDERED: HEPARIN SODIUM,PORCINE 1,000 UNITS/ML VIAL IVCATH ONE ×2 (17:45)
[2022-09-10] MEDS ORDERED: AmLODIPine BESYLATE 10 MG TABLET PO SCH (19:51)
[2022-09-10] MEDS ORDERED: SODIUM CHLORIDE 0.9% 1,000 ML ONE (20:06)
[2022-09-10 20:26] LABS: GLUCOMETER DEV NAME(LOC) 5S.1B; GLUCOSE,POINT OF CARE 112 MG/DL (70-110)
[2022-09-10 20:26] LABS: GLUCOMETER DEV NAME(LOC) 5S.1B; GLUCOSE,POINT OF CARE 152 MG/DL (70-110)
[2022-09-10 20:27] LABS: GLUCOMETER DEV NAME(LOC) 5S.1B; GLUCOSE,POINT OF CARE 133 MG/DL (70-110)
[2022-09-10] MEDS: CARVEDILOL 12.5 MG TABLET PO SCH (20:45)
[2022-09-10] MEDS: SEVELAMER CARBONATE 800 MG TABLET PO SCH (20:45)
[2022-09-10] MEDS: CefTRIAXone SODIUM 2 GM in DEXTROSE 5%-WATER 50 ML IV SCH (20:45)
[2022-09-10] MEDS: INSULIN LISPRO 100 UNITS/ML SQ PRN (20:52)
[2022-09-10 22:51] LABS: GLUCOMETER DEV NAME(LOC) 5S.2C; GLUCOSE,POINT OF CARE 161 MG/DL (70-110)
[2022-09-11] MEDS: MetroNIDAZOLE 500 MG TABLET PO SCH ×4 (00:01→23:50)
[2022-09-11 00:09] VITALS: BP 150/81
[2022-09-11 04:19] VITALS: BP 155/85
[2022-09-11 06:55] LABS: BASOPHILS % (AUTO) 1.3 % (0.0-2.0); EOSINOPHILS % (AUTO) 4.7 % (1.0-6.0); HEMATOCRIT 35.7 % (41-53); LYMPHOCYTES # (AUTO) 0.6 K/uL (1.0-4.8); LYMPHOCYTES % (AUTO) 7.1 % (22.0-44.0); MEAN CORPUSCULAR HEMOGLOBIN 20.8 pg (26.0-34.0); MEAN CORPUSCULAR HGB CONC 30.9 G/dL (31.0-37.0); MEAN CORPUSCULAR VOLUME 67 fL (80-100); MONOCYTES # (AUTO) 0.9 K/uL (0.1-1.0); MONOCYTES % (AUTO) 10.9 % (2.0-9.0); PLATELET COUNT (AUTO) 249 K/uL (150-450); RED CELL DISTRIBUTION WIDTH 16.2 % (11.5-14.5)
[2022-09-11 07:17] LABS: ALBUMIN 3.5 g/dL (3.4-5.0); BILIRUBIN,TOTAL 0.4 mg/dL (0.1-1.0); CALCIUM, TOTAL 8.4 mg/dL (8.8-10.5); CREATININE 7.08 mg/dL (0.60-1.30); POTASSIUM 4.1 mmol/L (3.5-5.1); TOTAL PROTEIN, SERUM 8.6 g/dL (6.4-8.2)
[2022-09-11 07:31] VITALS: BP 130/95
[2022-09-11] MEDS: DOXYCYCLINE HYCLATE 100 MG in DEXTROSE 5%-WATER 100 ML IV SCH ×2 (08:12→20:47)
[2022-09-11] MEDS: SEVELAMER CARBONATE 800 MG TABLET PO SCH ×2 (08:13→18:25)
[2022-09-11] MEDS: EPOETIN ALFA 10,000 UNITS/ML 2 ML VIAL SQ SCH (08:13)
[2022-09-11] MEDS: ATORVASTATIN CALCIUM 40 MG TABLET PO SCH (08:14)
[2022-09-11] MEDS: PANTOPRAZOLE SODIUM 40 MG/VIAL IVP SCH (08:14)
[2022-09-11] MEDS: AmLODIPine BESYLATE 10 MG TABLET PO SCH (08:14)
[2022-09-11] MEDS: CARVEDILOL 12.5 MG TABLET PO SCH ×2 (08:14→20:47)
[2022-09-11] MEDS: HEPARIN SODIUM,PORCINE 5,000 UNITS/ML VIAL SQ SCH ×4 (08:15→23:50)
[2022-09-11] MEDS: CLOPIDOGREL BISULFATE 75 MG TABLET PO SCH (08:15)
[2022-09-11] MEDS: ASPIRIN 81 MG DR TABLET PO SCH (08:15)
[2022-09-11 10:36] LABS: GLUCOMETER DEV NAME(LOC) 5N.2C; GLUCOSE,POINT OF CARE 132 MG/DL (70-110)
[2022-09-11 12:00] VITALS: BP 152/82
[2022-09-11] MEDS: CefTRIAXone SODIUM 2 GM in DEXTROSE 5%-WATER 50 ML IV SCH (18:26)
[2022-09-11] MEDS: INSULIN LISPRO 100 UNITS/ML SQ PRN ×2 (18:31→20:57)
[2022-09-11 19:37] VITALS: BP 152/80
[2022-09-12] VITALS (13 sets, daily range): BP systolic 137–171; BP diastolic 79–97
[2022-09-12 02:46] LABS: GLUCOMETER DEV NAME(LOC) 5S.1B; GLUCOSE,POINT OF CARE 121 MG/DL (70-110)
[2022-09-12 05:46] LABS: GLUCOMETER DEV NAME(LOC) 5N.1C; GLUCOSE,POINT OF CARE 137 MG/DL (70-110)
[2022-09-12 07:25] LABS: BASOPHILS % (AUTO) 1.7 % (0.0-2.0); EOSINOPHILS % (AUTO) 5.9 % (1.0-6.0); HEMOGLOBIN 10.6 g/dL (13.5-17.5); MEAN CORPUSCULAR HEMOGLOBIN 20.9 pg (26.0-34.0); MEAN CORPUSCULAR HGB CONC 31.2 G/dL (31.0-37.0); MEAN CORPUSCULAR VOLUME 67 fL (80-100); MONOCYTES # (AUTO) 0.8 K/uL (0.1-1.0); MONOCYTES % (AUTO) 10.8 % (2.0-9.0); NEUTROPHILS # (AUTO) 4.9 K/uL (1.8-7.7); NEUTROPHILS % (AUTO) 67.6 % (40.0-70.0); PLATELET COUNT (AUTO) 274 K/uL (150-450); RED BLOOD CELL COUNT(AUTO) 5.06 MIL/uL (4.50-5.90); RED CELL DISTRIBUTION WIDTH 16.1 % (11.5-14.5)
[2022-09-12 07:51] LABS: ALBUMIN 3.5 g/dL (3.4-5.0); BILIRUBIN,TOTAL 0.4 mg/dL (0.1-1.0); CALCIUM, TOTAL 7.9 mg/dL (8.8-10.5); CREATININE 9.8 mg/dL (0.60-1.30); POTASSIUM 4.4 mmol/L (3.5-5.1)
[2022-09-12] MEDS: PANTOPRAZOLE SODIUM 40 MG/VIAL IVP SCH (08:26)
[2022-09-12] MEDS: MetroNIDAZOLE 500 MG TABLET PO SCH ×2 (08:26→16:35)
[2022-09-12] MEDS: HEPARIN SODIUM,PORCINE 5,000 UNITS/ML VIAL SQ SCH ×2 (08:26→16:35)
[2022-09-12] MEDS: SEVELAMER CARBONATE 800 MG TABLET PO SCH ×2 (08:26→18:00)
[2022-09-12] MEDS: DOXYCYCLINE HYCLATE 100 MG in DEXTROSE 5%-WATER 100 ML IV SCH (08:27)
[2022-09-12] MEDS: CLOPIDOGREL BISULFATE 75 MG TABLET PO SCH (08:27)
[2022-09-12] MEDS: ATORVASTATIN CALCIUM 40 MG TABLET PO SCH (08:27)
[2022-09-12] MEDS: ASPIRIN 81 MG DR TABLET PO SCH (08:27)
[2022-09-12] MEDS: CARVEDILOL 12.5 MG TABLET PO SCH (09:00)
[2022-09-12] MEDS: AmLODIPine BESYLATE 10 MG TABLET PO SCH (09:00)
[2022-09-12] MEDS ORDERED: SODIUM CHLORIDE 0.9% 2,000 ML ONE (09:36)
[2022-09-12] MEDS ORDERED: HEPARIN SODIUM,PORCINE 1,000 UNITS/ML VIAL IVCATH ONE ×2 (13:00)
[2022-09-12 13:46] LABS: GLUCOMETER DEV NAME(LOC) 5S.1B; GLUCOSE,POINT OF CARE 99 MG/DL (70-110)
[2022-09-12 13:46] LABS: GLUCOMETER DEV NAME(LOC) 5S.1B; GLUCOSE,POINT OF CARE 102 MG/DL (70-110)
[2022-09-12] MEDS ORDERED: CLOP75TA60 PO (16:56)
[2022-09-12] MEDS: CefTRIAXone SODIUM 2 GM in DEXTROSE 5%-WATER 50 ML IV SCH (18:00)
[2022-09-12] MEDS ORDERED: HEPARIN SODIUM,PORCINE 1,000 UNITS/ML VIAL IVP ONE ×2 (19:39)
== END 2022-09-12 19:40 | disposition home health service (06) | DRG 870 ==
LOC: EMS 08:23 → ICUN 13:20 → ICU 09-05 15:25 → 5S 09-10 03:23
PROVIDERS: ADMIT Hospitalist; ATTEND Hospitalist
PROC: 5A1955Z Respiratory Ventilation, Greater than 96 Consecutive Hours (ICD-10-PCS; principal; 2022-09-04)
PROC: 0BH17EZ Insertion of Endotracheal Airway into Trachea, Via Natural or Artificial Opening (ICD-10-PCS; 2022-09-04)
PROC: 5A09357 Assistance with Respiratory Ventilation, Less than 24 Consecutive Hours, Continuous Positive Airway Pressure (ICD-10-PCS; 2022-09-04)
PROC: 5A1D70Z Performance of Urinary Filtration, Intermittent, Less than 6 Hours Per Day (ICD-10-PCS; 2022-09-05)
PROC: 5A1D70Z Performance of Urinary Filtration, Intermittent, Less than 6 Hours Per Day (ICD-10-PCS; 2022-09-06)
PROC: 5A1D70Z Performance of Urinary Filtration, Intermittent, Less than 6 Hours Per Day (ICD-10-PCS; 2022-09-08)
PROC: 5A1D70Z Performance of Urinary Filtration, Intermittent, Less than 6 Hours Per Day (ICD-10-PCS; 2022-09-09)
PROC: 5A1D70Z Performance of Urinary Filtration, Intermittent, Less than 6 Hours Per Day (ICD-10-PCS; 2022-09-10)
PROC: 5A1D70Z Performance of Urinary Filtration, Intermittent, Less than 6 Hours Per Day (ICD-10-PCS; 2022-09-11)
DX: A41.9 Sepsis, unspecified organism (principal); J96.01 Acute respiratory failure with hypoxia; J18.9 Pneumonia, unspecified organism; N18.6 End stage renal disease; J96.02 Acute respiratory failure with hypercapnia; I13.2 Hypertensive heart and chronic kidney disease with heart failure and with stage 5 chronic kidney disease, or end stage renal disease; J81.1 Chronic pulmonary edema; E87.4 Mixed disorder of acid-base balance; E87.1 Hypo-osmolality and hyponatremia; I50.42 Chronic combined systolic (congestive) and diastolic (congestive) heart failure; I25.5 Ischemic cardiomyopathy; D63.1 Anemia in chronic kidney disease; E83.51 Hypocalcemia; E11.22 Type 2 diabetes mellitus with diabetic chronic kidney disease; E83.39 Other disorders of phosphorus metabolism; F01.50 Vascular dementia, unspecified severity, without behavioral disturbance, psychotic disturbance, mood disturbance, and anxiety; I25.2 Old myocardial infarction; Z99.2 Dependence on renal dialysis; Z87.891 Personal history of nicotine dependence
CPT/HCPCS: 36600; 51702; 70450; 71045; 71250; 80048; 80053; 81001; 81002; 82550; 82805; 82962; 83540; 83550; 83605; 83735; 83880; 84100; 84484; 85025; 85610; 85730; 87040; 87070; 87081; 87086; 87186; 87205; 87340; 87804; 90935; 92523; 92526; 92610; 93005; 93306; 94002; 94003; 97116; 97163; 97165; 97530; 97535; 99291; C9113; G0378; J0330; J0360; J0696; J0885; J1644; J1940; J2250; J2704; J3490; J7030; J7050; J7060; P9046; P9047; Q9967; 36415-L1; 36415-TC

== ENCOUNTER 2022-11-14 07:36 | Inpatient (IN) | payer MEDICARE, OTHER ==
[2022-11-14] VITALS (9 sets, daily range): BP systolic 94–176; BP diastolic 56–87
[~2022-11-14] VITALS: Ht 175.3 cm; Wt 82.7 kg
[~2022-11-14 07:36] MED LIST changes: +ATOR-2 PO; -ATOR40TA71 PO; +ERGO500054 PO; -LOSA25TA2 PO; +TELM80TA10 PO
[2022-11-14 08:22] LABS: HEMOGLOBIN 12.9 g/dL (13.5-17.5); LYMPHOCYTES # (AUTO) 2.3 K/uL (1.0-4.8)
[2022-11-14 08:26] LABS: COVID AG,FIA SOURCE NASOPHARYNGEAL
[2022-11-14 08:29] LABS: EOSINOPHILS % (AUTO) 6.2 % (1.0-6.0); HEMATOCRIT 42.5 % (41-53); LYMPHOCYTES % (AUTO) 24.2 % (22.0-44.0); MEAN CORPUSCULAR HGB CONC 30.3 G/dL (31.0-37.0); MEAN CORPUSCULAR VOLUME 69 fL (80-100); MONOCYTES # (AUTO) 0.8 K/uL (0.1-1.0); MONOCYTES % (AUTO) 8.5 % (2.0-9.0); NEUTROPHILS # (AUTO) 5.6 K/uL (1.8-7.7); NEUTROPHILS % (AUTO) 60.1 % (40.0-70.0); PLATELET COUNT (AUTO) 208 K/uL (150-450); RED BLOOD CELL COUNT(AUTO) 6.13 MIL/uL (4.50-5.90); RED CELL DISTRIBUTION WIDTH 17.7 % (11.5-14.5)
[2022-11-14 08:40] LABS: CALCIUM, TOTAL 8.1 mg/dL (8.8-10.5); CREATININE 11.66 mg/dL (0.60-1.30); INR 1.1 (0.9-1.1); POTASSIUM 5.7 mmol/L (3.5-5.1); PROTHROMBIN TIME 11.2 SEC (9.4-11.6)
[2022-11-14] MEDS: PROPOFOL 1000 MG/ISO-OSM 100 ML IV PRN ×2 (08:40→12:14)
[2022-11-14] MEDS ORDERED: NITROGLYCERIN 50 MG/D5% WATER 250 ML IV PRN (08:45)
[2022-11-14 08:47] LABS: INFLUENZA TYPE A NEGATIVE FOR TYPE A (NEGATIVE); INFLUENZA TYPE B POSITIVE FOR TYPE B (NEGATIVE)
[2022-11-14 09:05] LABS: ALBUMIN 4.3 g/dL (3.4-5.0); BILIRUBIN,TOTAL 0.4 mg/dL (0.1-1.0); MAGNESIUM 2.9 mg/dL (1.80-2.40)
[2022-11-14 09:26] LABS: PHOSPHORUS 12.1 mg/dL (2.5-4.9)
[2022-11-14] MEDS ORDERED: IOHEXOL 350 MG/ML 100 ML VIAL ONE (09:26)
[2022-11-14] MEDS ORDERED: SODIUM CHLORIDE 0.9% 100 ML ONE (09:26)
[2022-11-14] MEDS ORDERED: VANCOMYCIN 1GM/WATER(PEG/NADA) 200 ML IV ONE (09:30)
[2022-11-14] MEDS ORDERED: PIPERACILLIN/TAZO 3.375 GM/D5W 50 ML IV ONE (09:30)
[2022-11-14] MEDS ORDERED: AZITHROMYCIN 500 MG/NS 250 ML IV ONE (09:30)
[2022-11-14] MEDS ORDERED: ONDANSETRON HCL 4 MG/2 ML VIAL IVP PRN (10:30)
[2022-11-14] MEDS ORDERED: 0.9% SODIUM CHLORIDE 10 ML SYRINGE IVP PRN (10:30)
[2022-11-14] MEDS ORDERED: CALCIUM GLUCONATE 100 MG/ML 10 ML IVP ONE (11:45)
[2022-11-14] MEDS ORDERED: CALCIUM CHLORIDE 100 MG/ML 10 ML SYRINGE IVP ONE ×3 (11:45→12:45)
[2022-11-14 11:54] LABS: ABG BASE EXCESS -8.8 mmol/L (-2.0-3.0); ABG CARBOXYHEMOGLOBIN 0.5 % (0.0-1.5); ABG HCO3 15.7 mmol/L (22.0-26.0); ABG METHEMOGLOBIN 0.6 % (0.0-1.5); ABG OXYGEN CONTENT 17.9 mL/dL (15.0-23.0); ABG OXYGEN SATURATION 99.3 % (95.0-98.0); ABG OXYHEMOGLOBIN 98.2 % (94.0-100.0); ABG TOTAL HEMOGLOBIN 12.5 G/dL (12.0-18.0); PO2, ARTERIAL BG 260.6 mmHg (79.0-87.0); SOURCE, BLOOD GAS ARTERIAL; TEMPERATURE, FAHRENHEIT, BG 93.7 FAHREN (96.0-98.6)
[2022-11-14 11:55] LABS: ABG PCO2 113 mmHg (35-45); ABG PH 6.927 (7.35-7.450); O2 DEVICE,BLOOD GAS VENTILATOR (ROOM AIR); PEEP,BG 5 cm H2O; SITE, BLOOD GAS RT BRACHIAL; SPONTANEOUS VT, BG 303 ml; VENT MODE, BG Press. Control Vent (ROOM AIR)
[2022-11-14 11:56] LABS: INSPIRATORY TIME, BG 1 SEC
[2022-11-14] MEDS ORDERED: HEPARIN SODIUM,PORCINE 1,000 UNITS/ML VIAL IVP ONE (12:00)
[2022-11-14] MEDS ORDERED: SODIUM BICARBONATE [ADULT] 8.4% 50 MEQ/50 ML SYRINGE IVP ONE ×2 (12:00→12:45)
[2022-11-14] MEDS ORDERED: ALBUTEROL SULFATE 2.5 MG/0.5 ML NEB SOLUTION NEB ONE (12:00)
[2022-11-14] MEDS ORDERED: CALCIUM CHLORIDE 100 MG/ML 10 ML VIAL IVP ONE ×2 (12:00→12:45)
[2022-11-14 12:12] LABS: BASOPHILS % (AUTO) 0.5 % (0.0-2.0); EOSINOPHILS % (AUTO) 1.7 % (1.0-6.0); HEMATOCRIT 38.3 % (41-53); HEMOGLOBIN 11.3 g/dL (13.5-17.5); LYMPHOCYTES # (AUTO) 0.8 K/uL (1.0-4.8); LYMPHOCYTES % (AUTO) 5.3 % (22.0-44.0); MEAN CORPUSCULAR HEMOGLOBIN 20.9 pg (26.0-34.0); MEAN CORPUSCULAR HGB CONC 29.5 G/dL (31.0-37.0); MEAN CORPUSCULAR VOLUME 71 fL (80-100); MONOCYTES # (AUTO) 0.8 K/uL (0.1-1.0); MONOCYTES % (AUTO) 5.2 % (2.0-9.0); PLATELET COUNT (AUTO) 214 K/uL (150-450); RED BLOOD CELL COUNT(AUTO) 5.42 MIL/uL (4.50-5.90); RED CELL DISTRIBUTION WIDTH 18.5 % (11.5-14.5)
[2022-11-14 12:15] LABS: NEUTROPHILS % (AUTO) 87.3 % (40.0-70.0)
[2022-11-14] MEDS ORDERED: DEXTROSE 50%-WATER 25 GM/50 ML SYRINGE IVP ONE (12:15)
[2022-11-14] MEDS ORDERED: INSULIN REGULAR, HUMAN 100 UNITS/ML IVP ONE ×2 (12:15→12:45)
[2022-11-14 12:27] LABS: CALCIUM, TOTAL 8.7 mg/dL (8.8-10.5); CREATININE 12.16 mg/dL (0.60-1.30); MAGNESIUM 2.7 mg/dL (1.80-2.40)
[2022-11-14] MEDS ORDERED: NOREPINEPHRINE 8 MG/D5%-WATER 250 ML IV PRN (12:30)
[2022-11-14 12:36] LABS: POTASSIUM 8.7 mmol/L (3.5-5.1)
[2022-11-14 12:41] LABS: PHOSPHORUS 14.2 mg/dL (2.5-4.9)
[2022-11-14] MEDS ORDERED: SODIUM ZIRCONIUM CYCLOSILICATE 5 GM POWDER PACKET PO ONE (12:45)
[2022-11-14] MEDS ORDERED: CISATRACURIUM BESYLATE 20 MG in DEXTROSE 5%-WATER 98 ML IV PRN (13:15)
[2022-11-14] MEDS ORDERED: FentaNYL CIT 1000MCG/0.9% NACL 100 ML IV PRN (13:15)
[2022-11-14] MEDS ORDERED: CISATRACURIUM BESYLATE 2 MG/ML 10 ML VIAL IVP ONE (13:15)
[2022-11-14] MEDS ORDERED: SODIUM CHLORIDE 0.9% 500 ML IV ONE (13:48)
[2022-11-14] MEDS ORDERED: RINGERS SOLUTION,LACTATED 500 ML IV ONE (14:30)
[2022-11-14] MEDS ORDERED: VASOPRESSIN 40 UNITS in DEXTROSE 5%-WATER 98 ML IV PRN (14:30)
[2022-11-14 14:38] LABS: ABG BASE EXCESS -7.9 mmol/L (-2.0-3.0); ABG CARBOXYHEMOGLOBIN 0.3 % (0.0-1.5); ABG HCO3 18.4 mmol/L (22.0-26.0); ABG METHEMOGLOBIN 0.5 % (0.0-1.5); ABG OXYGEN CONTENT 17.1 mL/dL (15.0-23.0); ABG OXYGEN SATURATION 99.7 % (95.0-98.0); ABG OXYHEMOGLOBIN 98.9 % (94.0-100.0); ABG PCO2 39 mmHg (35-45); ABG PH 7.292 (7.35-7.450); ABG TOTAL HEMOGLOBIN 11.7 G/dL (12.0-18.0); PO2, ARTERIAL BG 297.4 mmHg (79.0-87.0); SOURCE, BLOOD GAS ARTERIAL; TEMPERATURE, FAHRENHEIT, BG 94.2 FAHREN (96.0-98.6)
[2022-11-14 14:39] LABS: INSPIRATORY TIME, BG 1 SEC; O2 DEVICE,BLOOD GAS VENTILATOR (ROOM AIR); PEEP,BG 5 cm H2O; SITE, BLOOD GAS ARTERIAL LINE; SPONTANEOUS VT, BG 598 ml; VENT MODE, BG Press. Control Vent (ROOM AIR)
[2022-11-14] MEDS ORDERED: CefTRIAXone SODIUM 2 GM in DEXTROSE 5%-WATER 50 ML IV SCH (17:00)
[2022-11-14] MEDS ORDERED: MethylPREDNISolone SOD SUCC 40 MG/ML VIAL IVP SCH (18:00)
[2022-11-14 18:12] LABS: CALCIUM, TOTAL 8.7 mg/dL (8.8-10.5); CREATININE 7.25 mg/dL (0.60-1.30)
[2022-11-14 18:18] LABS: ALBUMIN 3.4 g/dL (3.4-5.0); BILIRUBIN,TOTAL 0.4 mg/dL (0.1-1.0); TOTAL PROTEIN, SERUM 6.9 g/dL (6.4-8.2)
[2022-11-14] MEDS ORDERED: DOXYCYCLINE HYCLATE 100 MG in DEXTROSE 5%-WATER 100 ML IV SCH (20:00)
[2022-11-14] MEDS ORDERED: PROPOFOL 1000 MG/ISO-OSM 100 ML IV PRN (20:30)
[2022-11-14] MEDS ORDERED: OSELTAMIVIR PHOSPHATE 30 MG CAPSULE PO SCH (21:00)
[2022-11-15] MEDS ORDERED: CISATRACURIUM BESYLATE 100 MG in DEXTROSE 5%-WATER 240 ML IV PRN (07:15)
== END 2022-11-14 21:33 | disposition short-term general hospital (02) | DRG 871 ==
LOC: EMS 07:38 → AHU 10:35
PROVIDERS: ADMIT Hospitalist; ATTEND Hospitalist
PROC: 0BJ08ZZ Inspection of Tracheobronchial Tree, Via Natural or Artificial Opening Endoscopic (ICD-10-PCS; principal; 2022-11-14)
PROC: 0BH17EZ Insertion of Endotracheal Airway into Trachea, Via Natural or Artificial Opening (ICD-10-PCS; 2022-11-14)
PROC: 5A1935Z Respiratory Ventilation, Less than 24 Consecutive Hours (ICD-10-PCS; 2022-11-14)
PROC: 4A133B1 Monitoring of Arterial Pressure, Peripheral, Percutaneous Approach (ICD-10-PCS; 2022-11-14)
PROC: 5A1D70Z Performance of Urinary Filtration, Intermittent, Less than 6 Hours Per Day (ICD-10-PCS; 2022-11-14)
PROC: 04HY32Z Insertion of Monitoring Device into Lower Artery, Percutaneous Approach (ICD-10-PCS; 2022-11-14)
PROC: 06HM33Z Insertion of Infusion Device into Right Femoral Vein, Percutaneous Approach (ICD-10-PCS; 2022-11-14)
PROC: B54BZZA Ultrasonography of Right Lower Extremity Veins, Guidance (ICD-10-PCS; 2022-11-14)
DX: A41.9 Sepsis, unspecified organism (principal); J10.00 Influenza due to other identified influenza virus with unspecified type of pneumonia; N18.6 End stage renal disease; J18.9 Pneumonia, unspecified organism; J96.02 Acute respiratory failure with hypercapnia; J96.01 Acute respiratory failure with hypoxia; I13.2 Hypertensive heart and chronic kidney disease with heart failure and with stage 5 chronic kidney disease, or end stage renal disease; I16.1 Hypertensive emergency; I50.9 Heart failure, unspecified; Z20.822 Contact with and (suspected) exposure to COVID-19; E11.22 Type 2 diabetes mellitus with diabetic chronic kidney disease; J39.8 Other specified diseases of upper respiratory tract; E78.5 Hyperlipidemia, unspecified; E87.5 Hyperkalemia; D64.9 Anemia, unspecified; E83.39 Other disorders of phosphorus metabolism; Z79.899 Other long term (current) drug therapy; Z79.82 Long term (current) use of aspirin; Z79.01 Long term (current) use of anticoagulants; Z87.891 Personal history of nicotine dependence; Z99.2 Dependence on renal dialysis
CPT/HCPCS: 31622; 36600; 71045; 80048; 80053; 82550; 82805; 83605; 83735; 83880; 84100; 84484; 85025; 85610; 85730; 87040; 87340; 87804; 90935; 93005; 94002; 99291; G0378; J0456; J0696; J1644; J1815; J2543; J2704; J3490; J7040; J7050; J7060; J7120; Q9967; 36415-L1; 36415-TC; J7613